=== PATIENT | female | born 1940 | race Caucasian/White ===

== ENCOUNTER 2016-03-05 21:38 | Inpatient (IN) | payer MEDICARE, BC, OTHER ==
[~2016-03-05] VITALS: Ht 162.6 cm; Wt 74.4 kg
[~2016-03-05 21:38] MED LIST: ASPI81TA83 OR; BABY81CH; BABY81CH OR; CLAR5CHW; Centrum Silver; MULTIVIT OR; PAIN325T; SYNT88TA; SYNT88TA OR; ZOCO5TAB OR; Zocor; [UNRECOGNIZED DRUG - OTHER]; calcium chews OR; lysine OR
[2016-03-05] MEDS ORDERED: ASPIRIN 81 MG CHEW TABLET As Ordered ONE (22:08)
[2016-03-05 22:28] LABS: BASO % 0.5 % (0.0-1.0); EOS # 0.1 K/mm3 (0.0-0.50); EOS % 0.8 % (0.0-3.0); LARGE UNSTAINED CELL # 0.2 K/mm3 (0.0-0.4); LARGE UNSTAINED CELL % 1.6 % (0.0-4.0); LYMPH # 1.7 K/mm3 (1.5-4.5); LYMPH % 16.4 % (24.0-44.0); MEAN CORPUSCULAR HEMOGLOBIN 30.1 pg (27.0-33.0); MEAN CORPUSCULAR HGB CONC 33.1 g/dl (32.0-36.5); MEAN CORPUSCULAR VOLUME 90.8 fl (80.0-96.0); MONO # 0.5 K/mm3 (0.0-0.8); MONO % 4.3 % (0.0-5.0); NEUTROPHILS % 76.5 % (36.0-66.0); PLATELET COUNT, AUTOMATED 273 k/mm3 (150-450); RED CELL DISTRIBUTION WIDTH 12.6 % (11.5-14.5); WHITE BLOOD COUNT 10.5 K/mm3 (4.0-10.0)
[2016-03-05 22:50] LABS: ANION GAP 9 MEQ/L (8-16); BLOOD UREA NITROGEN 20 MG/DL (7-18); CALCIUM LEVEL 9.1 MG/DL (8.8-10.2); CARBON DIOXIDE LEVEL 28 MEQ/L (21-32); CHLORIDE LEVEL 102 MEQ/L (98-107); CREATININE FOR GFR 1.04 MG/DL (0.55-1.02); GLOMERULAR FILTRATION RATE 54.7 (>39); GLUCOSE, FASTING 115 MG/DL (83-110); POTASSIUM SERUM 3.8 MEQ/L (3.5-5.1); SODIUM LEVEL 139 MEQ/L (136-145)
[2016-03-05] MEDS ORDERED: MORPHINE 2 MG/ML 1ML SYRINGE As Ordered ONE (23:10)
[2016-03-05] MEDS ORDERED: ISOVUE-370 76% 100ML VIAL (Q9967) As Ordered ONE (23:23)
--- NOTE | 2016-03-06 00:10 | REPUSA ---
CLINICAL INDICATION: Shortness of breath. Evaluate for pulmonary embolism. COMPARISON: None TECHNIQUE: CT pulmonary angiogram was performed with intravenous contrast. 3D/MIPS technique was util ized with multiplanar reconstructions in sagittal and coronal projections. FINDINGS: LINES AND DEVICES: None PULMONARY ARTERY: The pulmonary artery is normal in caliber. There is no evidence of filling defects in the main, right or left main, lobar, segmental, and visualized subsegmental pulmonary arteries. AORTA: Normal in caliber with no evidence of gross dissection or aneurysm. LOWER NECK/THYROID: Thyroid gland is unremarkable. No mass, suspicious cystic lesion, or enlarged gabi nopathy. AXILLA/HILUM/MEDIASTINUM : No enlarged adenopathy, mass, suspicious cystic lesion, or fluid collectio n. HEART: Heart is normal in size without pericardial effusion. AIRWAYS, LUNGS AND PLEURA: Bilateral centrilobular emphysematous changes, dependent changes toward th e lower lobes with mild atelectasis, and a left posterior lung base infiltrate-like opacity noted on axial series 402, image 603. No mass, suspicious nodule, or pneumothorax. Central and visualized tesha pheral airways are patent. UPPER ABDOMEN: Visualized upper abdominal organs are unremarkable. OSSEOUS STRUCTURES: No fracture or suspicious lesion SOFT TISSUES AND THORACIC WALL : No soft tissue abnormality or hernia. OTHER: No other significant abnormalities. IMPRESSION: No pulmonary embolism. Centrilobular emphysematous changes noted with a left lower lobe opacity towar d the bases which may represent infiltrate in proper clinical context.
[2016-03-06] MEDS ORDERED: LevoFLOXacin(LEVAQUIN)500 MG/100 ML BAG (J1956) As Ordered ONE (01:02)
[2016-03-06] MEDS ORDERED: ONDANSETRON 4MG/2ML VIAL (J2405) IV PRN (01:15)
[2016-03-06] MEDS ORDERED: VITMTA PO (01:39)
[2016-03-06] MEDS ORDERED: LEVO88TA3 PO (01:39)
[2016-03-06] MEDS ORDERED: VIAC8.5C PO (01:39)
[2016-03-06] MEDS ORDERED: SIMV10TA2 PO (01:39)
[2016-03-06] MEDS ORDERED: ASPI81TA7 PO (01:39)
[2016-03-06] MEDS ORDERED: ACET50TAOT PO (01:39)
[2016-03-06] MEDS ORDERED: LYSI1000 PO (01:39)
[2016-03-06] MEDS ORDERED: ACETAMINOPHEN TAB 650MG DOSE (2X325MG) As Ordered ONE ×2 (03:02→09:12)
[2016-03-06 05:00] VITALS: BP 132/68
[2016-03-06] MEDS: LEVOTHYROXINE 0.088 MG TAB (88 MCG) PO SCH (06:22)
--- NOTE | 2016-03-06 06:30 | HPE ---
DATE OF ADMISSION: 03/06/2016 PRIMARY CARE PROVIDER: Dr. Mell Mendoza. CHIEF COMPLAINT: Trouble breathing when my back hurts. HISTORY OF PRESENT ILLNESS: Ms. Rodriguez is a 75-year-old female with past medical history of hypothyroidism, hyperlipidemia who presented to the emergency department (ED) today with the complaint of trouble breathing when her back and her shoulder blades hurt. Episode started at 7:00 this morning. States that she was sleeping in bed and suddenly developed her pain to her back which then led to her having problems breathing which woke her up from her room sleep. This occurred for approximately one hour. She then took some Tylenol and her back pain gradually improved. Once her back pain resolved, her shortness of breath also resolved. This was associated with chest tightness across her chest that lasted ten minutes. Burping seemed to help with her chest pain and shortness of breath. Her symptoms are not worse with positional change or deep inspiration. Around the same time she also started feeling clammy and flashing of lights which happened intermittently for the last few years. She actually had an episode of chills last week and saw her private care physician. At that time, was told that her throat and ear were red and was conservatively treated. Also, some time in the last week she also started developing cough with clear phlegm. Her cough has not worsened. She recently, yesterday, had a dental procedure and tolerated that well. She presented to the ED tonight because her pain recurred while she was walking into her home. At that time, she was reporting shoulder blade pain which then led her to have chest pain which resolved with [id number] pain medication. No extremity edema, paroxysmal nocturnal dyspnea, pallor, orthopnea, hemoptysis, fevers, night sweats. In the ED she was given Levaquin, aspirin, morphine. PAST MEDICAL HISTORY: 1. Tubular villous adenoma, status post colon resection. 2. Extensive abdominal adhesions. 3. Hyperthyroidism which subsequently led to partial thyroidectomy. 4. Post surgical hypothyroidism. 5. Hyperlipidemia. 6. Small bowel obstruction. 7. Benign lung nodule. 8. Benign breast nodule. PAST SURGICAL HISTORY: 1. Laparotomy. 2. Right hemicolectomy with ileal colic anastomosis. 3. Lysis of adhesions. 4. Repair of enterotomy 2008. 5. Laparotomy and lysis of adhesions. 6. Release of small bowel obstruction 2004. 7. Right lumpectomy. 8. Left lung resection, reportedly had one-fourth of her lobe removed, benign findings. 9. Left knee surgery. 10. Hysterectomy with bilateral oophorectomy. 11. Appendectomy. 12. Subtotal thyroidectomy. ALLERGIES: PENICILLIN, ERYTHROMYCIN reaction passing out. HOME MEDICATIONS: - Tylenol 1000 mg every 6 hours by mouth - aspirin 81 mg by mouth nightly - levothyroxine 88 mcg daily - lysin 2000 mg daily - multivitamin one tablet daily - Lipitor 10 mg by mouth nightly - Viactiv one chewable tablet twice a day SOCIAL HISTORY: The patient is an ex-smoker but greater than 20 pack year, quit in the 80s. No alcohol, no drug use. No recent travel. She used to work as a dietary director at [employer] and also in the [employer]. Unsure if she had exposure to asbestos there. Currently lives at home with her spouse. No pets. Lifetime travel includes [place], [place], [place], [place] and [place]. FAMILY HISTORY: Father with lung cancer in his 70s and mother myocardial infarction (PA) in her 40s. REVIEW OF SYSTEMS: REVIEW OF SYSTEMS: CONSTITUTIONAL: Positive for chronic chills and decreased appetite. HEENT: Reports occasional episodes of flashing lights and headaches which had been chronic for years. Recently had tooth filling but no difficulty with speech and swallow. CARDIOVASCULAR: Denies chest pain, paroxysmal nocturnal dyspnea, pillow orthopnea, lower extremity edema. PULMONARY: Denies shortness of breath, productive cough, hemoptysis. GASTROINTESTINAL: Reports episodes alternating with diarrhea, constipation. She had two lose bowel movements this morning. No hematemesis, hematochezia or melena. GENITOURINARY: Reports increased urination at night which has been chronic for years. No dysuria, or urgency, or hematuria. MUSCULOSKELETAL: Positive for back pain and bilateral shoulder pain and leg pain. She reports that her legs tend to get spastic which requires her to place them on the ground which seems to help with symptoms. NEUROLOGICAL: No paralysis, paresthesia. ENDOCRINE: Positive for thyroid disease, negative for diabetes. LYMPHATICS: No new lumps, bumps, or swelling anywhere in neck, axilla, or groin. HEMATOLOGY: No abnormal bleeding or bruising. ONCOLOGY: No history of malignancy. INTEGUMENT: Positive ecchymosis from her recent filling of her tooth. PSYCHIATRIC: No history of depression, anxiety. PHYSICAL EXAMINATION: VITAL SIGNS: Blood pressure 149/82, heart rate 70, temperature 97.3, respiratory rate 20, pulse oximetry 95% on room air. Body maximum index (BMI) 28. GENERAL: The patient was lying in bed at approximately 30 degree angle, comfortable, in no acute distress. She is awake, alert and oriented times three. Pleasant, cooperative. at bedside, no respiratory distress. HEENT: Normocephalic atraumatic. Moist oral mucosa. Left cheek with ecchymotic changes from her recent dental procedure. No obvious lesions were appreciated. Extraocular movements intact. NECK: Supple, trachea midline. No jugular venous distention (JVD). There is a healed horizontal scar from her prior partial thyroidectomy. CHEST: Symmetric chest rise, no accessory muscle use. Breath sounds are diminished bilateral lung bases. No rhonchi, wheezing, crackles appreciated. Prolonged expiratory phase. Negative egophony. HEART: Regular rate and rhythm, S1, S2 present. Could not appreciate any murmurs , rubs, gallops. Left upper back with healed incisional scar from her prior lung surgery. ABDOMEN: Soft, nontender, nondistended. Bowel sounds present. No guarding, no rebound. There are multiple healed incisional scars appreciated. EXTREMITIES: No pedal edema, pedal pulses present bilaterally. NEUROLOGIC: Sensory intact. Strength 5/5 in all extremities. No focal deficits appreciated. MUSCULOSKELETAL: Her trapezius muscles are tender to palpation. No costovertebral angle (CVA) tenderness. No other muscle tenderness. No paraspinal muscle tenderness. LABORATORY DATA: WBC 10.5, hemoglobin 13.6, hematocrit 41.1, platelets 273. Sodium 139, potassium 3.8, chloride 102, carbon dioxide 28, BUN 20, creatinine 1.04, glucose 117, troponin first set is negative. BNP 47.7. Blood cultures pending. CTA shows no pulmonary embolus (PE). Central lobular emphysematous changes in the left lower lobe towards the bases which may represent an infiltrate. EKG with rate of 64, sinus rhythm. Chest x-ray shows no obvious infiltrate. Aorta is calcified. Mild cardiomegaly. IMPRESSION AND PLAN: Ms. Rodriguez is a 75-year-old female with history of small bowel obstruction, hyperlipidemia, hypothyroidism who presented with shortness of breath. 1. Shortness of breath. This could be due to pulmonary, cardiac, infectious (bacterial or viral), or other. The patient will be admitted for close monitoring. So far, cardiac work-up has been negative. Continue to trend troponin. A CTA was unrevealing for pulmonary embolus. Check blood culture and sputum culture. The patient was started on Levaquin. Will continue antibiotics for now. 2. Chest pain. She has vague chest pain that is related only when she has back pain and also resolves when she burps. This is less suspicious for cardiac in origin; however, continue to trend troponin. Other possibilities include musculoskeletal, viral infection or gastrointestinal reflux disease (GERD). Continue to monitor. 3. Hypothyroidism. Continue levothyroxine 88 mcg daily. 4. Hyperlipidemia. Continue home dose statin. 5. Deep venous thrombosis (DVT) prophylaxis. Sequential compression device (SCD) , thromboembolic deterrent stockings (TEDS) and Lovenox. My preceptor for this patient encounter was Dr. Flores Jolly. The preceptor was physically present in the building during the encounter and was fully available as needed. All aspects of the patient interview, examination, medical decision making process, and medical care plan development were reviewed and approved by the preceptor. The preceptor is aware and concurs with the plan as stated in the body of this note and will attest to such by her co-signature. OLE
[2016-03-06 07:22] LABS: MEAN CORPUSCULAR HEMOGLOBIN 30.5 pg (27.0-33.0); MEAN CORPUSCULAR HGB CONC 33.7 g/dl (32.0-36.5); MEAN CORPUSCULAR VOLUME 90.7 fl (80.0-96.0); RED CELL DISTRIBUTION WIDTH 12.6 % (11.5-14.5); WHITE BLOOD COUNT 8.4 K/mm3 (4.0-10.0)
[2016-03-06 07:31] LABS: ANION GAP 7 MEQ/L (8-16); BLOOD UREA NITROGEN 16 MG/DL (7-18); CALCIUM LEVEL 8.8 MG/DL (8.8-10.2); CARBON DIOXIDE LEVEL 26 MEQ/L (21-32); CHLORIDE LEVEL 105 MEQ/L (98-107); CREATININE FOR GFR 0.92 MG/DL (0.55-1.02); GLOMERULAR FILTRATION RATE > 60.0 (>39); GLUCOSE, FASTING 106 MG/DL (83-110); SODIUM LEVEL 138 MEQ/L (136-145)
[2016-03-06 08:00] VITALS: BP 128/78
[2016-03-06] MEDS ORDERED: ENOXAPARIN 40 MG/0.4 ML SYRINGE (J1650) As Ordered ONE (08:01)
[2016-03-06] MEDS ORDERED: PANTOPRAZOLE 40MG TAB (PROTONIX) As Ordered ONE (08:01)
[2016-03-06] MEDS: ENOXAPARIN 40 MG/0.4 ML SYRINGE (J1650) SC SCH (08:04)
[2016-03-06] MEDS: PANTOPRAZOLE 40MG TAB (PROTONIX) PO SCH (08:04)
--- NOTE | 2016-03-06 08:18 | REP ---
Clinical: Shortness of breath. Technique: PA and lateral. Comparison: 05/09/2014. Findings: Chronic elevation of the right hemidiaphragm and right basilar fibrotic changes are appreciated. Subtle superimposed right basilar atelectasis cannot be excluded. Remainder of lung bush are well-aerated and essentially clear. Mediastinum and cardiac silhouette are within normal limits and stable. Skeletal structures are intact. Impression: Chronic changes to the right hemithorax. Cannot exclude superimposed acute atelectasis. Signed by Reid Ma MD 03/06/2016 08:09 A
[2016-03-06] MEDS: ACETAMINOPHEN 500 MG TAB PO PRN ×3 (09:38→19:49)
--- NOTE | 2016-03-06 12:28 | EDDOCDS ---
Nurse's Notes [facility] Name: April Rodriguez Age: 75 yrs Sex: Female : 1940 Arrival Date: 03/05/2016 Time: 21:38 Bed Admit Hold Private MD: Mell Mendoza E Diagnosis: Chest pain, unspecified;Pneumonia, unspecified organism Presentation: 03/05 21:45 Presenting complaint: Patient states: trouble breathing started this morning when I [facility] woke up, I've been taking a couple of pain pills and it was better for a while but getting worse tonight, feel short of breath and getting worse with back pain when breathing. Had a filling on lower left yesterday and has sustained pain and visible bruising. Adult Sepsis Screening: The patient does not have new or worsening altered mentation. Patient's respiratory rate is less than 22. Systolic blood pressure is greater than 100. Patient has a qSOFA score of 0- Negative Sepsis Screen. Suicide/Homicide risk assessment- the patient denies having any suicidal and/or homicidal ideations and does not present with any other emotional, behavioral or mental health complaints. Status: Patient is not a vice president of consulting services or dependent. Transition of care: patient was not received from another setting of care. 21:45 Acuity: HIRAM Level 3 [facility] 21:45 Method Of Arrival: Walkin/Carried/Asstd [facility] Triage Assessment: 21:52 General: Appears in no apparent distress, comfortable, Behavior is appropriate for age, [facility] cooperative. Pain: Location: back Pain currently is 5 out of 10 on a pain scale. Respiratory: Onset: The symptoms/episode began/occurred this morning, Airway is patent Respiratory effort is even, unlabored, Respiratory pattern is regular, symmetrical. Historical: - Allergies: ampicillin sodium; PENICILLINS; - Home Meds: 1. Levothyroxine Unknown Oral 1 cap once daily (Last dose: 03/05/2016) 2. simvastatin 10 mg Oral tab 1 tab once daily (Last dose: 03/04/2016) 3. Tylenol 325 mg Oral tab 2 tabs every 4 hours (Last dose: 03/05/2016 16:00) - PMHx: flat polyps; Hypercholesterolemia; hypo thyroid; - PSHx: lung surgery; breast surgery; Colon Resection; - Social history: Smoking status: Patient states former smoker of tobacco. No barriers to communication noted. - Family history: Not pertinent. - : The pt / caregiver states he / she is not on anticoagulants. Home medication list is obtained from the patient. - Exposure Risk Screening:: None identified. Screenin:31 Screening information is obtained from the patient, family members. Fall risk: At risk cf2 due to age. Assistance ADL's: requires no assistance with activities of daily living. Abuse/DV Screen: The patient / caregiver reports he/she is: not in a situation that causes fear, pain or injury. Nutritional screening: No deficits noted. Advance Directives: Further advance directive information is declined. home support is adequate. Assessment: 22:28 General: Appears comfortable, Behavior is appropriate for age, cooperative, Denies cf2 feeling ill, fatigue, chills, Patient received alert and oriented, with complaint of shortness of breath that gets worse with laying down and a headache "where I see these bright flashes of light". MD made aware.. Pain: Location: headache. Neurological: No deficits noted. EENT: No deficits noted. Cardiovascular: No deficits noted. Capillary refill < 3 seconds Clubbing of nail beds is absent JVD is absent Edema is absent. Pulses are all present. Rhythm is sinus rhythm Chest pain is denied. Respiratory: No deficits noted. Airway is patent Respiratory effort is even, unlabored, Breath sounds are clear Reports shortness of breath while lying flat. GI: No deficits noted. : No deficits noted. Derm: Bruising that is dark purple, on lower jaw. Musculoskeletal: No deficits noted. Injury Description: No known injury. 23:56 General: pt came out to nurses station stating pt's stomach was bothering her. dsf pt would not tell this senior mortgage underwriter if she was in pain or had nausea. Pt states she felt hot. Dr. alvarado notified and went to evaluate pt . 03/06 04:57 Reassessment: Patient appears in no apparent distress at this time. Patient denies pain cf2 at this time. Patient states feeling better. Patient states symptoms have improved. Adult Sepsis Screening: The patient does not have new or worsening altered mentation. Patient's respiratory rate is less than 22. Systolic blood pressure is greater than 100. Patient has a qSOFA score of 0- Negative Sepsis Screen. Vital Signs: 03/05 21:40 BP 149 / 82 RA Sitting (auto/reg); Pulse 70; Resp 20; Temp 97.3(O); Pulse Ox 95% on rs6 R/A; Weight 74.39 kg (R); Height 5 ft. 4 in. (162.56 cm) (R); Pain 5/10; 22:13 BP 135 / 69 (auto/); cf2 22:14 Pulse 86 MON; Pulse Ox 96% ; cf2 22:43 Pulse 84 MON; Pulse Ox 97% ; cf2 22:43 BP 137 / 71 (auto/); cf2 23:13 BP 147 / 92 (auto/); cf2 23:14 Pulse 80 MON; Pulse Ox 97% ; cf2 23:43 Pulse 80 MON; Pulse Ox 97% ; cf2 23:43 BP 149 / 84 (auto/); cf2 23:51 BP 152 / 70 (auto/); dsf 23:53 Pulse 62 MON; Resp 20; Temp 96.8(O); Pulse Ox 95% on R/A; dsf 03/06 00:11 Pulse 76 MON; Pulse Ox 96% ; cf2 01:29 Pulse 74 MON; Pulse Ox 92% ; cf2 01:29 BP 132 / 78; Pulse 88; Resp 16; Temp 98.0; Pulse Ox 95% on R/A; Pain 0/10; cf2 01:37 Pulse 70 MON; Pulse Ox 91% ; cf2 01:45 Pulse 74 MON; Pulse Ox 92% ; cf2 01:50 Pulse 86 MON; Pulse Ox 94% ; cf2 01:56 Pulse 68 MON; Pulse Ox 94% ; cf2 02:31 BP 159 / 75 (auto/); cf2 03/05 21:40 Body Mass Index 28.15 (74.39 kg, 162.56 cm) rs6 Vitals: 03/05 21:40 Log In Time: March 05, 2016 at 21:33. rs6 21:41 RN notified that patient meets Red Flag criteria. rs6 ED Course: 21:39 Patient visited by Bridgette Scott PCA. rs6 21:39 Patient moved to Waiting rs6 21:40 Mell Mendoza is Private Physician. rs6 21:42 Patient visited by Bridgette Scott PCA. rs6 21:44 Patient moved to 12 21:45 Roney Alvarado MD is Attending Physician. br1 21:46 Triage Initiated cjh 22:00 Christina Ohara,GRAYSON is Primary Nurse. cf2 22:00 Patient visited by Christina Ohara RN. cf2 22:03 Patient visited by Christina Ohara RN. cf2 22:03 Patient visited by Shilpa Oneill PCA. kaur 22:03 Pt greeted and oriented to ED. Patient advised of names of staff involved in care, kaur location of call tena, wait times and NPO status. Accompanied by Significant Other, Patient has correct armband on for positive identification. Placed in gown. Bed in low position. Call light in reach. Side rails up X2. cardiac monitor technician on. Pulse ox on. NIBP on. 22:03 EKG done. (by ED staff). Reviewed by Roney Alvarado MD. kaur 22:05 Patient visited by Roney Alvarado MD. br1 22:17 Primary Nurse role handed off by Christina Ohara RN dsf 22:17 Ruby FungRN is Primary Nurse. dsf 22:17 Christina Ohara RN is Primary Nurse. cf2 22:17 Patient visited by Christina Ohara RN. cf2 22:17 Troponin Sent. cf2 22:17 Cardiac Injury Profile Sent. cf2 22:17 CBC with Diff Sent. cf2 22:17 Basic Metabolic Profile Sent. cf2 22:17 B-Type Natiuretic Peptide Sent. cf2 22:31 The patient / caregiver is instructed regarding the plan of care and ED course. cf2 Property :Personal belongings accompany Pt. Door closed. Noise minimized. Visitors limited. Lights dimmed. Moved to private room. Verbal reassurance given. Warm blanket given. Pillow given. Head of bed elevated. 22:31 Inserted saline lock: 20 gauge in right antecubital area and blood collected. The cf2 patient tolerated the procedure well. No procedures done that require assistance. 22:47 [facility] Payment Agreement was scanned into [employer] and attached to record. zo 22:50 Patient visited by Christina Ohara RN. cf2 22:56 Patient visited by Christina Ohara RN. cf2 23:[address] dsf 23:37 Patient moved to 12 jpk 23:38 Patient visited by Christina Ohara,GRAYSON. cf2 23:54 Patient visited by Roney Alvarado MD. br1 23:57 Patient visited by Ruby Fung RN. dsf 03/06 00:40 CT Chest Angio R/O PE Returned. EDMS 00:47 Patient visited by Christina Ohara,GRAYSON. cf2 00:51 Flores Jolly is Hospitalizing Provider. fg 01:01 Patient moved to Admit Hold cz 01:05 Patient visited by Christina Ohara RN. cf2 01:23 BLOOD CULTURES Sent. cf2 02:00 Patient visited by Christina Ohara RN. cf2 02:09 Patient visited by Christina Ohara RN. cf2 02:44 Patient visited by Christina Ohara RN. cf2 04:57 Patient visited by Christina Ohara RN. cf2 08:33 Chest, 2 View (pa\\E\\lat) Returned. EDMS Administered Medications: 03/05 22:11 Drug: Aspirin 324 mg [aspirin 81 mg chewable tablet (4 tabs)] Route: PO; cp1 23:23 Follow up: Response: No significant change. cf2 23:10 Drug: morphine 2 mg [morphine 2 mg/mL intravenous cartridge (1 mL)] Route: IVP; Site: cf2 left antecubital; 23:23 Follow up: Response: No significant change. cf2 03/06 01:00 Drug: levofloxacin 500 mg [levofloxacin 500 mg/100 mL in 5 % dextrose intravenous cf2 piggyback] Route: IVPB; Infused Over: 60 mins; Site: left antecubital; 02:09 Follow up: Response: No Adverse Reaction cf2 Order Results: Lab Order: B-Type Natiuretic Peptide; SPEC'M 03/05/16 22:15 Test: BRAIN NATRIURETIC PEPTIDE; Value: 47.7; Range: <100; Units: PG/ML; Status: F Lab Order: Basic Metabolic Profile; SPEC'M 03/05/16 22:14 Test: GLUCOSE, FASTING; Value: 115; Range: 83-110; Abnormal: Above high normal; Units: MG/DL; Status: F Test: BLOOD UREA NITROGEN; Value: 20; Range: 7-18; Abnormal: Above high normal; Units: MG/DL; Status: F Test: CREATININE FOR GFR; Value: 1.04; Range: 0.55-1.02; Abnormal: Above high normal; Units: MG/DL; Status: F Test: GLOMERULAR FILTRATION RATE; Value: 54.7; Range: >39; Status: F Test: SODIUM LEVEL; Value: 139; Range: 136-145; Units: MEQ/L; Status: F Test: POTASSIUM SERUM; Value: 3.8; Range: 3.5-5.1; Units: MEQ/L; Status: F Test: CHLORIDE LEVEL; Value: 102; Range: 98-107; Units: MEQ/L; Status: F Test: CARBON DIOXIDE LEVEL; Value: 28; Range: 21-32; Units: MEQ/L; Status: F Test: ANION GAP; Value: 9; Range: 8-16; Units: MEQ/L; Status: F Test: CALCIUM LEVEL; Value: 9.1; Range: 8.8-10.2; Units: MG/DL; Status: F Test Note: ; Units are mL/min/1.73 m2 Chronic Kidney Disease Staging per NKF: Stage I & II GFR >=60 Normal to Mildly Decreased Stage III GFR 30-59 Moderately Decreased Stage IV GFR 15-29 Severely Decreased Stage V GFR <15 Very Little GFR Left ESRD GFR <15 on COILED COIL INSPECTOR Lab Order: CBC with Diff; SPEC'M 03/05/16 22:15 Test: WHITE BLOOD COUNT; Value: 10.5; Range: 4.0-10.0; Abnormal: Above high normal; Units: K/mm3; Status: F Test: RED BLOOD COUNT; Value: 4.52; Range: 4.00-5.40; Units: M/mm3; Status: F Test: HEMOGLOBIN; Value: 13.6; Range: 12.0-16.0; Units: g/dl; Status: F Test: HEMATOCRIT; Value: 41.1; Range: 36.0-47.0; Units: %; Status: F Test: MEAN CORPUSCULAR VOLUME; Value: 90.8; Range: 80.0-96.0; Units: fl; Status: F Test: MEAN CORPUSCULAR HEMOGLOBIN; Value: 30.1; Range: 27.0-33.0; Units: pg; Status: F Test: MEAN CORPUSCULAR HGB CONC; Value: 33.1; Range: 32.0-36.5; Units: g/dl; Status: F Test: RED CELL DISTRIBUTION WIDTH; Value: 12.6; Range: 11.5-14.5; Units: %; Status: F Test: PLATELET COUNT, AUTOMATED; Value: 273; Range: 150-450; Units: k/mm3; Status: F Test: NEUTROPHILS %; Value: 76.5; Range: 36.0-66.0; Abnormal: Above high normal; Units: %; Status: F Test: LYMPH %; Value: 16.4; Range: 24.0-44.0; Abnormal: Below low normal; Units: %; Status: F Test: MONO %; Value: 4.3; Range: 0.0-5.0; Units: %; Status: F Test: EOS %; Value: 0.8; Range: 0.0-3.0; Units: %; Status: F Test: BASO %; Value: 0.5; Range: 0.0-1.0; Units: %; Status: F Test: LARGE UNSTAINED CELL %; Value: 1.6; Range: 0.0-4.0; Units: %; Status: F Test: NEUTROPHILS #; Value: 8.0; Range: 1.8-7.7; Abnormal: Above high normal; Units: K/mm3; Status: F Test: LYMPH #; Value: 1.7; Range: 1.5-4.5; Units: K/mm3; Status: F Test: MONO #; Value: 0.5; Range: 0.0-0.8; Units: K/mm3; Status: F Test: EOS #; Value: 0.1; Range: 0.0-0.50; Units: K/mm3; Status: F Test: BASO #; Value: 0.0; Range: 0.0-0.2; Units: K/mm3; Status: F Test: LARGE UNSTAINED CELL #; Value: 0.2; Range: 0.0-0.4; Units: K/mm3; Status: F Lab Order: Cardiac Injury Profile; SPEC'M 03/05/16 22:14 Test: CPK CREATINE PHOSPHOKINASE; Value: 75; Range: 26-192; Units: U/L; Status: F Test: CK-MB VALUE MASS; Value: 1.0; Range: 0.0-3.6; Units: NG/ML; Status: F Test: MB/CK RELATIVE INDEX; Value: 1.33; Range: < OR =4; Status: F Test Note: ; DIAGNOSIS CRITERIA MMB ng/ml Relative Index (RI) NON-AMI < or = 5 N/A SCHWARTZ ZONE > 5 < or = 4 AMI > 5 > 4 Lab Order: Troponin; [facility] 03/05/16 22:14 Test: TROPONIN I; Value: < 0.02; Range: < 0.10; Units: NG/ML; Status: F Test Note: ; Troponin I Reference Interval for [facility]: 99th Percentile= 0.00-0.045 ng/ml Risk Stratification: <= 0.10 ng/ml Decreased Risk for Adverse Clinical Events. 0.10-1.50 ng/ml Increased Risk for Adverse Clinical Events. Evaluation of additional criterion and/or repeat testing in 2-6 hours is suggested to rule out myocardial damage. >= 1.50 ng/ml Indicative of Myocardial Injury. Lab Order: CARDIAC MARKER PANEL; [facility]/06[facility] 03:08 Test: CPK CREATINE PHOSPHOKINASE; Value: 80; Range: 26-192; Units: U/L; Status: F Test: CK-MB VALUE MASS; Value: 1.0; Range: 0.0-3.6; Units: NG/ML; Status: F Test: MB/CK RELATIVE INDEX; Value: 1.25; Range: < OR =4; Status: F Test: TROPONIN I; Value: < 0.02; Range: < 0.10; Units: NG/ML; Status: F Test Note: ; DIAGNOSIS CRITERIA MMB ng/ml Relative Index (RI) NON-AMI < or = 5 N/A SCHWARTZ ZONE > 5 < or = 4 AMI > 5 > 4 Lab Order: TROPONIN; [facility] 03/06/16 10:15 Test: TROPONIN I; Value: < 0.02; Range: < 0.10; Units: NG/ML; Status: F Test Note: ; Troponin I Reference Interval for [employer] [facility] LOCI: 99th Percentile= 0.00-0.045 ng/ml Risk Stratification: <= 0.10 ng/ml Decreased Risk for Adverse Clinical Events. 0.10-1.50 ng/ml Increased Risk for Adverse Clinical Events. Evaluation of additional criterion and/or repeat testing in 2-6 hours is suggested to rule out myocardial damage. >= 1.50 ng/ml Indicative of Myocardial Injury. Lab Order: COMPLETE BLOOD COUNT; SPEC'M 03/06/16 07:04 Test: WHITE BLOOD COUNT; Value: 8.4; Range: 4.0-10.0; Units: K/mm3; Status: F Test: RED BLOOD COUNT; Value: 4.18; Range: 4.00-5.40; Units: M/mm3; Status: F Test: HEMOGLOBIN; Value: 12.8; Range: 12.0-16.0; Units: g/dl; Status: F Test: HEMATOCRIT; Value: 37.9; Range: 36.0-47.0; Units: %; Status: F Test: MEAN CORPUSCULAR VOLUME; Value: 90.7; Range: 80.0-96.0; Units: fl; Status: F Test: MEAN CORPUSCULAR HEMOGLOBIN; Value: 30.5; Range: 27.0-33.0; Units: pg; Status: F Test: MEAN CORPUSCULAR HGB CONC; Value: 33.7; Range: 32.0-36.5; Units: g/dl; Status: F Test: RED CELL DISTRIBUTION WIDTH; Value: 12.6; Range: 11.5-14.5; Units: %; Status: F Test: PLATELET COUNT, AUTOMATED; Value: 208; Range: 150-450; Units: k/mm3; Status: F Lab Order: BASIC METABOLIC PROFILE; SPEC'M 03/06/16 07:04 Test: GLUCOSE, FASTING; Value: 106; Range: 83-110; Units: MG/DL; Status: F Test: BLOOD UREA NITROGEN; Value: 16; Range: 7-18; Units: MG/DL; Status: F Test: CREATININE FOR GFR; Value: 0.92; Range: 0.55-1.02; Units: MG/DL; Status: F Test: GLOMERULAR FILTRATION RATE; Value: > 60.0; Range: >39; Status: F Test: SODIUM LEVEL; Value: 138; Range: 136-145; Units: MEQ/L; Status: F Test: POTASSIUM SERUM; Value: 4.0; Range: 3.5-5.1; Units: MEQ/L; Status: F Test: CHLORIDE LEVEL; Value: 105; Range: 98-107; Units: MEQ/L; Status: F Test: CARBON DIOXIDE LEVEL; Value: 26; Range: 21-32; Units: MEQ/L; Status: F Test: ANION GAP; Value: 7; Range: 8-16; Abnormal: Below low normal; Units: MEQ/L; Status: F Test: CALCIUM LEVEL; Value: 8.8; Range: 8.8-10.2; Units: MG/DL; Status: F Test Note: ; Units are mL/min/1.73 m2 Chronic Kidney Disease Staging per NKF: Stage I & II GFR >=60 Normal to Mildly Decreased Stage III GFR 30-59 Moderately Decreased Stage IV GFR 15-29 Severely Decreased Stage V GFR <15 Very Little GFR Left ESRD GFR <15 on COILED COIL INSPECTOR Radiology Order: Chest, 2 View (pa\\E\\lat) Test: Chest, 2 View (pa\\E\\lat) REASON FOR EXAMINATION: Shortness of Breath; Clinical: Shortness of breath.; ; Technique: PA and lateral.; ; Comparison: 05/09/2014.; ; Findings:; Chronic elevation of the right hemidiaphragm and right basilar fibrotic changes; are appreciated. Subtle superimposed right basilar atelectasis cannot be; excluded. Remainder of lung bush are well-aerated and essentially clear.; Mediastinum and cardiac silhouette are within normal limits and stable. Skeletal; structures are intact.; ; Impression:; Chronic changes to the right hemithorax.; Cannot exclude superimposed acute atelectasis.; ; ; Signed by; Reid Ma MD 03/06/2016 08:09 A; Radiology Order: CT Chest Angio R/O PE Test: CT Chest Angio R/O PE REASON FOR EXAMINATION: Shortness of Breath; ; CLINICAL INDICATION: Shortness of breath. Evaluate for pulmonary embolism.; COMPARISON: None; TECHNIQUE: CT pulmonary angiogram was performed with intravenous contrast. 3D/MIPS technique was util; ized with multiplanar reconstructions in sagittal and coronal projections.; FINDINGS:; LINES AND DEVICES: None; PULMONARY ARTERY: The pulmonary artery is normal in caliber. There is no evidence of filling defects; in the main, right or left main, lobar, segmental, and visualized subsegmental pulmonary arteries.; AORTA: Normal in caliber with no evidence of gross dissection or aneurysm.; LOWER NECK/THYROID: Thyroid gland is unremarkable. No mass, suspicious cystic lesion, or enlarged gabi; nopathy.; AXILLA/HILUM/MEDIASTINUM : No enlarged adenopathy, mass, suspicious cystic lesion, or fluid collectio; n.; HEART: Heart is normal in size without pericardial effusion.; AIRWAYS, LUNGS AND PLEURA: Bilateral centrilobular emphysematous changes, dependent changes toward th; e lower lobes with mild atelectasis, and a left posterior lung base infiltrate-like opacity noted on; axial series 402, image 603. No mass, suspicious nodule, or pneumothorax. Central and visualized tesha; pheral airways are patent.; UPPER ABDOMEN: Visualized upper abdominal organs are unremarkable.; OSSEOUS STRUCTURES: No fracture or suspicious lesion; SOFT TISSUES AND THORACIC WALL : No soft tissue abnormality or hernia.; OTHER: No other significant abnormalities.; IMPRESSION:; No pulmonary embolism. Centrilobular emphysematous changes noted with a left lower lobe opacity towar; d the bases which may represent infiltrate in proper clinical context.; ; Outcome: 03/05 22:14 CT Study completed. cf2 03/06 00:52 Decision to Hospitalize by Provider. fg 01:29 Discharge Assessment: Patient awake, alert and oriented x 3. No cognitive and/or cf2 functional deficits noted. Patient verbalized understanding of disposition instructions. Patient awake and alert. Oriented to person, place and time. Patient verbalized understanding of disposition instructions. Patient has no functional deficits. patient administered narcotics - yes. Patient was admitted to the hospital or transferred to another facility. The following High Risk Discharge criteria are identified: None. Admitted ER admission nurse. Condition: stable. 12:27 Patient left the ED. nichole Signatures: Dispatcher [employer] EDMS Juanito Ch RN RN dwg Zecher, Calvin, RN RN cz King, James jpk Olin, Zoeann zo Roggie, Brian, MD MD br1 Gale Salas LPN LPN cp1 Shilpa Oneill, CRIMPER OPERATOR CRIMPER OPERATOR kaur Kenton,Ruby,RN RN Crissy Han,RN RN cj Tyler, Bridgette, CRIMPER OPERATOR CRIMPER OPERATOR rs6 Ariana Walker MD MD Christina Ohara,RN RN cf2 MTDD
--- NOTE | 2016-03-06 12:28 | EDDOCDS ---
Physician Documentation [facility] Name: April Rodriguez Age: 75 yrs Sex: Female : 1940 Arrival Date: 03/05/2016 Time: 21:38 Bed Admit Hold Private MD: Mell Mendoza E Disposition: 03/06/16 00:52 Hospitalization ordered by Flores Jolly for Inpatient Admission. Preliminary diagnosis are Chest pain, unspecified, Pneumonia, unspecified organism. - Bed requested for 4 [place]. - Status is Inpatient Admission. dwg - Condition is Stable. - Problem is new. - Symptoms have improved. Historical: - Allergies: ampicillin sodium; PENICILLINS; - Home Meds: 1. Levothyroxine Unknown Oral 1 cap once daily (Last dose: 03/05/2016) 2. simvastatin 10 mg Oral tab 1 tab once daily (Last dose: 03/04/2016) 3. Tylenol 325 mg Oral tab 2 tabs every 4 hours (Last dose: 03/05/2016 16:00) - PMHx: flat polyps; Hypercholesterolemia; hypo thyroid; - PSHx: lung surgery; breast surgery; Colon Resection; - Social history: Smoking status: Patient states former smoker of tobacco. No barriers to communication noted. - Family history: Not pertinent. - : The pt / caregiver states he / she is not on anticoagulants. Home medication list is obtained from the patient. - Exposure Risk Screening:: None identified. Vital Signs: 03/05 21:40 BP 149 / 82 RA Sitting (auto/reg); Pulse 70; Resp 20; Temp 97.3(O); Pulse Ox 95% on rs6 R/A; Weight 74.39 kg / 164 lbs (R); Height 5 ft. 4 in. (162.56 cm) (R); Pain 5/10; 22:13 BP 135 / 69 (auto/); cf2 22:14 Pulse 86 MON; Pulse Ox 96% ; cf2 22:43 Pulse 84 MON; Pulse Ox 97% ; cf2 22:43 BP 137 / 71 (auto/); cf2 23:13 BP 147 / 92 (auto/); cf2 23:14 Pulse 80 MON; Pulse Ox 97% ; cf2 23:43 Pulse 80 MON; Pulse Ox 97% ; cf2 23:43 BP 149 / 84 (auto/); cf2 23:51 BP 152 / 70 (auto/); dsf 23:53 Pulse 62 MON; Resp 20; Temp 96.8(O); Pulse Ox 95% on R/A; dsf 03/06 00:11 Pulse 76 MON; Pulse Ox 96% ; cf2 01:29 Pulse 74 MON; Pulse Ox 92% ; cf2 01:29 BP 132 / 78; Pulse 88; Resp 16; Temp 98.0; Pulse Ox 95% on R/A; Pain 0/10; cf2 01:37 Pulse 70 MON; Pulse Ox 91% ; cf2 01:45 Pulse 74 MON; Pulse Ox 92% ; cf2 01:50 Pulse 86 MON; Pulse Ox 94% ; cf2 01:56 Pulse 68 MON; Pulse Ox 94% ; cf2 02:31 BP 159 / 75 (auto/); cf2 03/05 21:40 Body Mass Index 28.15 (74.39 kg, 162.56 cm) rs6 MDM: 03/05 21:51 Taco Maker/Pulse Ox/q 30 min VS ordered. br1 21:51 IV Saline Lock ordered. br1 21:51 Rhythm Strip to chart ordered. br1 21:51 Undress patient appropriately for examination ordered. br1 21:52 B-Type Natiuretic Peptide Ordered. EDMS 21:52 Basic Metabolic Profile Ordered. EDMS 21:52 CBC with Diff Ordered. EDMS 21:52 Cardiac Injury Profile Ordered. EDMS 21:52 Troponin Ordered. EDMS 21:53 Chest, 2 View (pa\E\lat) Ordered. EDMS 21:53 ECG WITH READING ER PHYS+CARDIAG ordered. EDMS 22:05 Aspirin 324 mg PO once ordered. br1 22:33 CBC with Diff Reviewed. br1 22:39 Financial registration complete. zo 22:47 [facility] Payment Agreement was scanned into [employer] and attached to record. zo 22:49 B-Type Natiuretic Peptide Reviewed. br1 22:58 Basic Metabolic Profile Reviewed. br1 22:58 Cardiac Injury Profile Reviewed. br1 22:58 Troponin Reviewed. br1 23:00 CT Chest Angio R/O PE Ordered. EDMS 23:09 morphine 2 mg IVP once; prn pain ordered. br1 23:19 Repeat EKG (put time details section) ordered. br1 23:19 Redraw CIP &Troponin (put time in details section) ordered. br1 23:29 Redraw CIP &Troponin (put time in details section) complete. ml3 23:29 Repeat EKG (put time details section) complete. ml3 23:30 CARDIAC MARKER PANEL Ordered. EDMS 23:48 Recheck Vital Signs, perform reassessment and enter into Med[employer] ordered. br1 23:57 -Blood Culture (Adults Only), peripheral from different site, or from device/port/PICC br1 etc. if present ordered. 23:57 -Blood Culture Ordered. EDMS 23:58 -Blood Culture (Adults Only), peripheral from different site, or from device/port/PICC ml3 etc. if present complete. 03/06 00:00 BLOOD CULTURES Ordered. EDMS 00:50 levofloxacin 500 mg IVPB once over 60 mins ordered. fg 00:50 BED REQUEST+ADM ordered. EDMS 00:53 Repeat EKG (put time details section) ordered. fg 00:53 Redraw CIP &Troponin (put time in details section) ordered. fg 00:58 Repeat EKG (put time details section) complete. ml3 00:58 Redraw CIP &Troponin (put time in details section) complete. ml3 01:08 Admission / Observation Status ordered. EDMS 01:09 REGULAR DIET ordered. EDMS 02:29 SPUTUM CULTURE AND GRAM STAIN Ordered. EDMS 05:37 TROPONIN Ordered. EDMS 05:37 COMPLETE BLOOD COUNT Ordered. EDMS 05:38 BASIC METABOLIC PROFILE Ordered. EDMS 06:32 URINALYSIS Ordered. EDMS 06:32 URINE CULTURE Ordered. EDMS Administered Medications: 03/05 22:11 Drug: Aspirin 324 mg [aspirin 81 mg chewable tablet (4 tabs)] Route: PO; cp1 23:23 Follow up: Response: No significant change. cf2 23:10 Drug: morphine 2 mg [morphine 2 mg/mL intravenous cartridge (1 mL)] Route: IVP; Site: cf2 left antecubital; 23:23 Follow up: Response: No significant change. cf2 03/06 01:00 Drug: levofloxacin 500 mg [levofloxacin 500 mg/100 mL in 5 % dextrose intravenous cf2 piggyback] Route: IVPB; Infused Over: 60 mins; Site: left antecubital; 02:09 Follow up: Response: No Adverse Reaction cf2 Signatures: Dispatcher [employer] EDMS Juanito Ch, RN RN dwg Laura, MeaganReganSuzy, Executive Meeting Manager Unit ml3 Mily Ospina Brian, MD MD br1 Crissy BatesRN RN [facility] Stacey Claros RN RN sls2 Ariana Walker MD MD Christina Ohara RN RN cf2 Gale Salas LPN cp1 The chart was reviewed and I authenticate all verbal orders and agree with the evaluation and treatment provided.Corrections: (The following items were deleted from the chart) 01:02 00:59 CARDIAC MARKER PANEL ordered. EDMS EDMS 01:10 01:07 BLOOD CULTURES ordered. EDMS EDMS 05:39 02:09 TROPONIN ordered. EDMS EDMS 07:49 00:59 ECG WITH READING ER PHYS ordered. EDMS EDMS 11:40 03/05 23:29 ECG WITH READING ER PHYS ordered. EDMS EDMS Attachments: 22:47 [facility] Payment Agreement zo MTDD
[2016-03-06 12:35] VITALS: BP 135/82
[2016-03-06] MEDS: IBUPROFEN 400 MG TAB PO PRN (16:16)
[2016-03-06] MEDS: ASPIRIN 81 MG ENTERIC TAB PO SCH (20:58)
[2016-03-06] MEDS: SIMVASTATIN 10 MG TAB PO SCH (20:59)
[2016-03-06 22:00] VITALS: BP 142/76
[2016-03-07] MEDS: LevoFLOXacin 500 MG in APPROPRIATE DILUENT 1 EA IV SCH (00:03)
[2016-03-07] MEDS: IBUPROFEN 400 MG TAB PO PRN ×2 (00:03→09:46)
[2016-03-07] MEDS: ACETAMINOPHEN 500 MG TAB PO PRN ×3 (05:10→14:20)
[2016-03-07] MEDS: LEVOTHYROXINE 0.088 MG TAB (88 MCG) PO SCH (05:42)
[2016-03-07 06:00] VITALS: BP 114/65
--- NOTE | 2016-03-07 07:18 | ECGEPIP ---
Stationary ECG Study [facility] - ED Test Date: 2016-03-05 Pat Name: NARGIS HANSON Department: Room: [place] [address] Gender: F Customer Care Representative: YangB: 1940 Requested By: YRIS Singh Order Number: [id number] Reading MD: Humera Douglas Measurements Intervals [place] Rate: 64 P: 56 PA: 187 QRS: 1 QRSD: 82 T: 33 QT: 381 QTc: 396 Interpretive Statements SINUS RHYTHM NONSPECIFIC T-WAVE ABNORMALITY NO PRIOR FOR COMPARISON Electronically Signed On 03-07-2016 7:18:22 EST by Humera Douglas
[2016-03-07 07:34] LABS: BASO % 0.1 % (0.0-1.0); EOS # 0.1 K/mm3 (0.0-0.50); EOS % 0.7 % (0.0-3.0); LARGE UNSTAINED CELL # 0.2 K/mm3 (0.0-0.4); LARGE UNSTAINED CELL % 2.1 % (0.0-4.0); LYMPH # 1.1 K/mm3 (1.5-4.5); LYMPH % 10.9 % (24.0-44.0); MEAN CORPUSCULAR HEMOGLOBIN 30.9 pg (27.0-33.0); MEAN CORPUSCULAR HGB CONC 33.8 g/dl (32.0-36.5); MEAN CORPUSCULAR VOLUME 91.6 fl (80.0-96.0); MONO # 0.7 K/mm3 (0.0-0.8); MONO % 6.8 % (0.0-5.0); NEUTROPHILS # 7.8 K/mm3 (1.8-7.7); NEUTROPHILS % 79.4 % (36.0-66.0); PLATELET COUNT, AUTOMATED 194 k/mm3 (150-450); RED CELL DISTRIBUTION WIDTH 12.6 % (11.5-14.5); WHITE BLOOD COUNT 9.8 K/mm3 (4.0-10.0)
[2016-03-07 07:43] LABS: ANION GAP 4 MEQ/L (8-16); BLOOD UREA NITROGEN 14 MG/DL (7-18); CALCIUM LEVEL 8.7 MG/DL (8.8-10.2); CARBON DIOXIDE LEVEL 29 MEQ/L (21-32); CHLORIDE LEVEL 108 MEQ/L (98-107); CREATININE FOR GFR 0.86 MG/DL (0.55-1.02); GLOMERULAR FILTRATION RATE > 60.0 (>39); GLUCOSE, FASTING 112 MG/DL (83-110); POTASSIUM SERUM 4.2 MEQ/L (3.5-5.1); SODIUM LEVEL 141 MEQ/L (136-145)
--- NOTE | 2016-03-07 09:16 | IPNPDOC ---
Assessment/Plan Date Seen The patient was seen on 03/07/16. Problems Problems: (1) Pneumonia Status: Acute Response to Treatment: Improving Discussed With: Patient Problem Specific Plan: Monitor Clinically Problem Text: Still requiring supplemental oxygen, will attempt to wean. IV antibiotics. Sputum cultures/gram stain pending. incentive spirometry/acapella/mucolytics. (2) Hyperthyroidism Status: Chronic Discussed With: Patient Problem Text: s/p partial thyroidectomy (3) Hypothyroidism Status: Chronic Discussed With: Patient Problem Text: secondary to partial thyroidectomy (4) Colon cancer Status: Chronic Discussed With: Patient Problem Text: tubular villous adenoma s/p resection Plan / VTE VTE Prophylaxis Ordered?: Yes (lovenox) Plan Diet: Continue Current Activity: Continue Current Medications: Start Antibiotics Respiratory: Wean Oxygen Diagnostics: Repeat Labs in AM, Obtain Cultures Anticipated Discharge: Home Subjective Review of Systems CC/HPI The patient is a 75-year-old female admitted with a reason for visit of Pneumonia. General: Denies: Chills, Fatigue, Malaise, Night Sweats, Normal Appetite, Other Symptoms, ROS Unobtainable Constitutional: Denies: Chills, Fatigue, Fever, Lethargy, Malaise, Night Sweats , Other, Weakness, Weight Loss Eyes: Denies: Conjunctivae inflammation, Eyelid inflammation, Other, Pain, Redness, Vision change ENT: Denies: Dysphagia, Ear Pain, Epistaxis, Head Aches, Other Symptoms, Post Nasal Drip, Sinus Congestion, Sore Throat Skin: Denies: Breakdown, Bruising, Dry, Itching, Jaundice, Lesions, Nail Changes, Other, Rash Pulmonary: Reports: Cough, Dyspnea, Denies: Other Symptoms, Pleuritic Chest Pain Cardiovascular: Denies: Chest Pain, Edema, Lt Headedness, Orthopnea, Other Symptoms, Palpitations, Paroxysmal Noc. Dyspnea Gastrointestinal: Denies: Abdominal Pain, Constipation, Diarrhea, Hematochezia , Melena, Nausea, Other Symptoms, Vomiting Objective Physical Examination General Exam: Positive: Alert, Cooperative, No Acute Distress Eye Exam: Positive: Conjunctiva & lids normal, EOMI, PERRLA ENT Exam: Positive: Atraumatic Neck Exam: Positive: Supple Chest Exam: Positive: Clear to auscultation, Diminished (right lower base diminised breath sounds), Negative: Normal air movement Heart Exam: Positive: Rate Normal, Regular Rhythm Abdomen Exam: Positive: Normal bowel sounds, Soft, Negative: Tenderness Psych Exam: Positive: Oriented x 3 Vital Signs/I&O Vital Signs Date Time Temp Pulse Resp B/P Pulse Ox O2 Delivery O2 Flow Rate FiO2 03/07/16 06:00 98.5 81 20 114/65 97 Nasal Cannula 3.0 I&O- Last 24 Hours up to 6 AM 03/07/16 06:00 Intake Total 1170 ml Output Total 1100 ml Balance 70 ml Laboratory Data Labs 24H Laboratory Tests 2 03/06/16 10:15: Troponin I < 0.02 03/07/16 05:19: Urine Amorphous Sediment , Urine Appearance CLEAR, Urine Color YELLOW, Urine pH 5.0, Urine Specific [place] 1.012, Urine Protein NEGATIVE, Urine Glucose (UA) NEGATIVE, Urine Ketones NEGATIVE, Urine Urobilinogen 0.2, Urine Bilirubin NEGATIVE, Urine Leukocyte Esterase 3+H, Urine Bacteria (Auto) 1+H, Urine Blood NEGATIVE, Urine Calcium Carbonate Cryst(Auto) , Urine Calcium Oxalate Cryst ( Auto) , Urine Calcium Phosphate Tiffanie (Auto) , Urine Cellular Casts , Urine Cystine Crystals , Urine Granular Casts (Auto) , Urine Hyaline Casts (Auto) 0, Urine Leucine Crystals , Urine Mucus (Auto) SMALL, Urine Nitrite NEGATIVE, Urine Oval Fat Bodies (Auto) , Urine RBC (Auto) 3, Urine Renal Epithelial Cells , Urine Sperm (Auto) , Urine Squamous Epithelial Cells 0, Urine Transitional Epithelial Cells , Urine Trichomonas (Auto) , Urine Triple Phosphate Cryst (Auto ) , Urine Tyrosine Crystals , Urine Uric Acid Crystals (Auto) , Urine WBC (Auto ) 38H, Urine Waxy Casts (Auto) , Urine Yeast-Like Cells (Auto) 03/07/16 07:13: Anion Gap 4L, White Blood Count 9.8, Red Blood Count 3.88L, Hemoglobin 12.0, Hematocrit 35.6L, Mean Corpuscular Volume 91.6, Mean Corpuscular Hemoglobin 30.9 , Mean Corpuscular Hemoglobin Concent 33.8, Red Cell Distribution Width 12.6, Platelet Count 194, Neutrophils (%) (Auto) 79.4H, Lymphocytes (%) (Auto) 10.9L, Monocytes (%) (Auto) 6.8H, Eosinophils (%) (Auto) 0.7, Basophils (%) (Auto) 0.1 , Neutrophils # (Auto) 7.8H, Lymphocytes # (Auto) 1.1L, Monocytes # (Auto) 0.7, Eosinophils # (Auto) 0.1, Basophils # (Auto) 0.0, Blood Urea Nitrogen 14, Creatinine 0.86, Sodium Level 141, Potassium Level 4.2, Chloride Level 108H, Carbon Dioxide Level 29, Calcium Level 8.7L, Glomerular Filtration Rate > 60.0, Large Unclassified Cells # 0.2, Large Unclassified Cells % 2.1 CBC/BMP Laboratory Tests 03/07/16 07:13 Calcium Level 8.7 L, Red Blood Count 3.88 L, Mean Corpuscular Volume 91.6, Mean Corpuscular Hemoglobin 30.9, Mean Corpuscular Hemoglobin Concent 33.8, Red Cell Distribution Width 12.6, Neutrophils (%) (Auto) 79.4 H, Lymphocytes (%) (Auto) 10.9 L, Monocytes (%) (Auto) 6.8 H, Eosinophils (%) (Auto) 0.7, Basophils (%) ( Auto) 0.1, Neutrophils # (Auto) 7.8 H, Lymphocytes # (Auto) 1.1 L, Monocytes # ( Auto) 0.7, Eosinophils # (Auto) 0.1, Basophils # (Auto) 0.0 Microbiology Microbiology 03/06/16 Blood Culture - Preliminary, Resulted No growth after 24 hours . All specim... 03/06/16 Blood Culture - Preliminary, Resulted No growth after 24 hours . All specim... 03/07/16 Urine Culture, Received Pending LSIBETH REYNOLDS MD Mar 07, 2016 09:15
[2016-03-07] MEDS: PANTOPRAZOLE 40MG TAB (PROTONIX) PO SCH (09:45)
[2016-03-07] MEDS: ENOXAPARIN 40 MG/0.4 ML SYRINGE (J1650) SC SCH (09:46)
[2016-03-07 14:00] VITALS: BP 111/74
[2016-03-07] MEDS ORDERED: SODIUM CHLORIDE 0.9% 1000 ML IV ONE (20:45)
[2016-03-07] MEDS: SIMVASTATIN 10 MG TAB PO SCH (20:49)
[2016-03-07] MEDS: ASPIRIN 81 MG ENTERIC TAB PO SCH (20:49)
[2016-03-07 22:00] VITALS: BP 90/58
[2016-03-07 23:00] VITALS: BP 115/67
[2016-03-08] MEDS: LevoFLOXacin 500 MG in APPROPRIATE DILUENT 1 EA IV SCH (00:47)
[2016-03-08 01:58] VITALS: BP 128/72
[2016-03-08] MEDS: ACETAMINOPHEN 500 MG TAB PO PRN (02:05)
[2016-03-08 05:26] LABS: BASO % 0.3 % (0.0-1.0); EOS # 0.1 K/mm3 (0.0-0.50); EOS % 0.9 % (0.0-3.0); LARGE UNSTAINED CELL # 0.2 K/mm3 (0.0-0.4); LARGE UNSTAINED CELL % 2.5 % (0.0-4.0); LYMPH # 1.2 K/mm3 (1.5-4.5); LYMPH % 13.1 % (24.0-44.0); MEAN CORPUSCULAR HEMOGLOBIN 30.3 pg (27.0-33.0); MEAN CORPUSCULAR HGB CONC 33.1 g/dl (32.0-36.5); MEAN CORPUSCULAR VOLUME 91.5 fl (80.0-96.0); MONO # 0.4 K/mm3 (0.0-0.8); MONO % 4.9 % (0.0-5.0); NEUTROPHILS # 7.1 K/mm3 (1.8-7.7); NEUTROPHILS % 78.3 % (36.0-66.0); PLATELET COUNT, AUTOMATED 204 k/mm3 (150-450); RED CELL DISTRIBUTION WIDTH 12.7 % (11.5-14.5)
[2016-03-08 05:28] LABS: ANION GAP 7 MEQ/L (8-16); BLOOD UREA NITROGEN 17 MG/DL (7-18); CALCIUM LEVEL 8.2 MG/DL (8.8-10.2); CARBON DIOXIDE LEVEL 26 MEQ/L (21-32); CHLORIDE LEVEL 111 MEQ/L (98-107); CREATININE FOR GFR 0.89 MG/DL (0.55-1.02); GLOMERULAR FILTRATION RATE > 60.0 (>39); GLUCOSE, FASTING 100 MG/DL (83-110); SODIUM LEVEL 144 MEQ/L (136-145)
[2016-03-08] MEDS: LEVOTHYROXINE 0.088 MG TAB (88 MCG) PO SCH (05:30)
[2016-03-08 06:00] VITALS: BP 113/57
--- NOTE | 2016-03-08 09:16 | IPN ---
DATE: 03/08/2016 logolineup NOTE Paged overhead, responded emergently to [employer] to patient April Rodriguez at 7:55 a.m. As I entered the room, I found an elderly, frail, obese, female lying flat in bed. She appeared rodgers with agonal, gurgling breaths. At that time, she was placed on a monitor. She did have a pulse; however, she quickly decompensated into a PEA rhythm. Respiratory began bagging the patient. Oral airway was placed. Cardiopulmonary resuscitation was initiated. The patient did receive eight rounds of epinephrine, as well as four rounds of bicarbonate. During resuscitative efforts, initially we were able to restore Doppler pulse; however, it was not able to hold it. The compressions were quickly resumed. She did have some episodes of bradyarrhythmia and as such, atropine was given times one without any significant effect. She remained in PEA. Dr. Restrepo of the emergency room staff was able to present to the bedside and assist with endotracheal intubation. While resuscitative efforts continued, the patient did also receive one round of calcium. Family was notified of the change in the patient's clinical status. Dr. Mayer did present bedside. Given the acute change in her status, there was concern for possible development of pulmonary embolism, although she did not have one at the time of arrival, based on review of the chart. Attempt at TPA was given. Several cycles of compressions of this following this were continued with frequent pulse checks. Unfortunately, there was no return to circulation or Doppler pulses, and resuscitative efforts ceased at 8:[address] Centeno, Dr. Rothman, Dr. Talbert, Dr. Travis, and Dr. Mayer at bedside prior to resuscitative efforts. There was suspicion for primary respiratory arrest given the patient's hypoxia appreciated.
[2016-03-08] MEDS ORDERED: SODIUM BICARBONATE 8.4% INJ 50 ML SYRINGE ONE (13:23)
[2016-03-08] MEDS ORDERED: EPINEPHrine 1MG/10ML SYRINGE 1.5IN ONE (13:23)
[2016-03-08] MEDS ORDERED: TENECTEPLASE 50 MG KIT (TNKase)(J3101) ONE (13:23)
[2016-03-08] MEDS ORDERED: CALCIUM CHLORIDE 10% 1 GM/10 ML SYR ONE (13:23)
[2016-03-08] MEDS ORDERED: ATROPINE SULF 1MG/10ML SYRINGE (J0461) ONE (13:23)
--- NOTE | 2016-03-08 13:28 | EDDOCDS ---
Physician Documentation [facility] Name: April Rodriguez Age: 75 yrs Sex: Female : 1940 Arrival Date: 03/05/2016 Time: 21:38 Bed Admit Hold Private MD: Mell Mendoza E Disposition: 03/06/16 00:52 Hospitalization ordered by Flores Jolly for Inpatient Admission. Preliminary diagnosis are Chest pain, unspecified, Pneumonia, unspecified organism. - Bed requested for 4 [place]. - Status is Inpatient Admission. dwg - Condition is Stable. - Problem is new. - Symptoms have improved. Historical: - Allergies: ampicillin sodium; PENICILLINS; - Home Meds: 1. Levothyroxine Unknown Oral 1 cap once daily (Last dose: 03/05/2016) 2. simvastatin 10 mg Oral tab 1 tab once daily (Last dose: 03/04/2016) 3. Tylenol 325 mg Oral tab 2 tabs every 4 hours (Last dose: 03/05/2016 16:00) - PMHx: flat polyps; Hypercholesterolemia; hypo thyroid; - PSHx: lung surgery; breast surgery; Colon Resection; - Social history: Smoking status: Patient states former smoker of tobacco. No barriers to communication noted. - Family history: Not pertinent. - : The pt / caregiver states he / she is not on anticoagulants. Home medication list is obtained from the patient. - Exposure Risk Screening:: None identified. Vital Signs: 03/05 21:40 BP 149 / 82 RA Sitting (auto/reg); Pulse 70; Resp 20; Temp 97.3(O); Pulse Ox 95% on rs6 R/A; Weight 74.39 kg / 164 lbs (R); Height 5 ft. 4 in. (162.56 cm) (R); Pain 5/10; 22:13 BP 135 / 69 (auto/); cf2 22:14 Pulse 86 MON; Pulse Ox 96% ; cf2 22:43 Pulse 84 MON; Pulse Ox 97% ; cf2 22:43 BP 137 / 71 (auto/); cf2 23:13 BP 147 / 92 (auto/); cf2 23:14 Pulse 80 MON; Pulse Ox 97% ; cf2 23:43 Pulse 80 MON; Pulse Ox 97% ; cf2 23:43 BP 149 / 84 (auto/); cf2 23:51 BP 152 / 70 (auto/); dsf 23:53 Pulse 62 MON; Resp 20; Temp 96.8(O); Pulse Ox 95% on R/A; dsf 03/06 00:11 Pulse 76 MON; Pulse Ox 96% ; cf2 01:29 Pulse 74 MON; Pulse Ox 92% ; cf2 01:29 BP 132 / 78; Pulse 88; Resp 16; Temp 98.0; Pulse Ox 95% on R/A; Pain 0/10; cf2 01:37 Pulse 70 MON; Pulse Ox 91% ; cf2 01:45 Pulse 74 MON; Pulse Ox 92% ; cf2 01:50 Pulse 86 MON; Pulse Ox 94% ; cf2 01:56 Pulse 68 MON; Pulse Ox 94% ; cf2 02:31 BP 159 / 75 (auto/); cf2 03/05 21:40 Body Mass Index 28.15 (74.39 kg, 162.56 cm) rs6 MDM: 03/05 21:51 Recruitment Specialist/Pulse Ox/q 30 min VS ordered. br1 21:51 IV Saline Lock ordered. br1 21:51 Rhythm Strip to chart ordered. br1 21:51 Undress patient appropriately for examination ordered. br1 21:52 B-Type Natiuretic Peptide Ordered. EDMS 21:52 Basic Metabolic Profile Ordered. EDMS 21:52 CBC with Diff Ordered. EDMS 21:52 Cardiac Injury Profile Ordered. EDMS 21:52 Troponin Ordered. EDMS 21:53 Chest, 2 View (pa\E\lat) Ordered. EDMS 21:53 ECG WITH READING ER PHYS+CARDIAG ordered. EDMS 22:05 Aspirin 324 mg PO once ordered. br1 22:33 CBC with Diff Reviewed. br1 22:39 Financial registration complete. zo 22:47 [facility] [place] Payment Agreement was scanned into [employer] and attached to record. zo 22:49 B-Type Natiuretic Peptide Reviewed. br1 22:58 Basic Metabolic Profile Reviewed. br1 22:58 Cardiac Injury Profile Reviewed. br1 22:58 Troponin Reviewed. br1 23:00 CT Chest Angio R/O PE Ordered. EDMS 23:09 morphine 2 mg IVP once; prn pain ordered. br1 23:19 Repeat EKG (put time details section) ordered. br1 23:19 Redraw CIP &Troponin (put time in details section) ordered. br1 23:29 Redraw CIP &Troponin (put time in details section) complete. ml3 23:29 Repeat EKG (put time details section) complete. ml3 23:30 CARDIAC MARKER PANEL Ordered. EDMS 23:48 Recheck Vital Signs, perform reassessment and enter into [employer] ordered. br1 23:57 -Blood Culture (Adults Only), peripheral from different site, or from device/port/PICC br1 etc. if present ordered. 23:57 -Blood Culture Ordered. EDMS 23:58 -Blood Culture (Adults Only), peripheral from different site, or from device/port/PICC ml3 etc. if present complete. 03/06 00:00 BLOOD CULTURES Ordered. EDMS 00:50 levofloxacin 500 mg IVPB once over 60 mins ordered. fg 00:50 BED REQUEST+ADM ordered. EDMS 00:53 Repeat EKG (put time details section) ordered. fg 00:53 Redraw CIP &Troponin (put time in details section) ordered. fg 00:58 Repeat EKG (put time details section) complete. ml3 00:58 Redraw CIP &Troponin (put time in details section) complete. ml3 01:08 Admission / Observation Status ordered. EDMS 01:09 REGULAR DIET ordered. EDMS 02:29 SPUTUM CULTURE AND GRAM STAIN Ordered. EDMS 05:37 TROPONIN Ordered. EDMS 05:37 COMPLETE BLOOD COUNT Ordered. EDMS 05:38 BASIC METABOLIC PROFILE Ordered. EDMS 06:32 URINALYSIS Ordered. EDMS 06:32 URINE CULTURE Ordered. EDMS 14:00 ECG/EKG was scanned into [employer] and attached to record. gb 14:01 T-Sheet-- Draft Copy was scanned into [employer] and attached to record. gb Administered Medications: 03/05 22:11 Drug: Aspirin 324 mg [aspirin 81 mg chewable tablet (4 tabs)] Route: PO; cp1 23:23 Follow up: Response: No significant change. cf2 23:10 Drug: morphine 2 mg [morphine 2 mg/mL intravenous cartridge (1 mL)] Route: IVP; Site: cf2 left antecubital; 23:23 Follow up: Response: No significant change. cf2 03/06 01:00 Drug: levofloxacin 500 mg [levofloxacin 500 mg/100 mL in 5 % dextrose intravenous cf2 piggyback] Route: IVPB; Infused Over: 60 mins; Site: left antecubital; 02:09 Follow up: Response: No Adverse Reaction cf2 Signatures: Dispatcher [employer] Juanito Winter, RN RN dwg Padmaja Plascencia, Reg Reg gb Laura, Anaya, Group Exercise Class Instructor Unit ml3 Mily Ospina Brian, MD MD br1 Crissy Bates RN RN [facility] Stacey Claros RN RN sls2 Ariana Walker MD MD Christina Ohara RN RN cf2 Gale Salas LPN cp1 The chart was reviewed and I authenticate all verbal orders and agree with the evaluation and treatment provided.Corrections: (The following items were deleted from the chart) : 00:59 CARDIAC MARKER PANEL ordered. EDMS EDMS 01:10 01:07 BLOOD CULTURES ordered. EDMS EDMS 05:39 02:09 TROPONIN ordered. EDMS EDMS 07:49 00:59 ECG WITH READING ER PHYS ordered. EDMS EDMS 11:40 03/05 23:29 ECG WITH READING ER PHYS ordered. EDMS EDMS Attachments: 22:47 [facility] Payment Agreement zo 03/06 14:00 ECG/EKG gb 14:01 T-Sheet-- Draft Copy gb Chart Complete MTDD
--- NOTE | 2016-03-08 13:28 | EDDOCDS ---
Physician Documentation [facility] Name: April Rodriguez Age: 75 yrs Sex: Female : 1940 Arrival Date: 03/05/2016 Time: 21:38 Bed Admit Hold Private MD: Mell Mendoza E Disposition: 03/06/16 00:52 Hospitalization ordered by Flores Jolly for Inpatient Admission. Preliminary diagnosis are Chest pain, unspecified, Pneumonia, unspecified organism. - Bed requested for 4 [place]. - Status is Inpatient Admission. dwg - Condition is Stable. - Problem is new. - Symptoms have improved. Historical: - Allergies: ampicillin sodium; PENICILLINS; - Home Meds: 1. Levothyroxine Unknown Oral 1 cap once daily (Last dose: 03/05/2016) 2. simvastatin 10 mg Oral tab 1 tab once daily (Last dose: 03/04/2016) 3. Tylenol 325 mg Oral tab 2 tabs every 4 hours (Last dose: 03/05/2016 16:00) - PMHx: flat polyps; Hypercholesterolemia; hypo thyroid; - PSHx: lung surgery; breast surgery; Colon Resection; - Social history: Smoking status: Patient states former smoker of tobacco. No barriers to communication noted. - Family history: Not pertinent. - : The pt / caregiver states he / she is not on anticoagulants. Home medication list is obtained from the patient. - Exposure Risk Screening:: None identified. Vital Signs: 03/05 21:40 BP 149 / 82 RA Sitting (auto/reg); Pulse 70; Resp 20; Temp 97.3(O); Pulse Ox 95% on rs6 R/A; Weight 74.39 kg / 164 lbs (R); Height 5 ft. 4 in. (162.56 cm) (R); Pain 5/10; 22:13 BP 135 / 69 (auto/); cf2 22:14 Pulse 86 MON; Pulse Ox 96% ; cf2 22:43 Pulse 84 MON; Pulse Ox 97% ; cf2 22:43 BP 137 / 71 (auto/); cf2 23:13 BP 147 / 92 (auto/); cf2 23:14 Pulse 80 MON; Pulse Ox 97% ; cf2 23:43 Pulse 80 MON; Pulse Ox 97% ; cf2 23:43 BP 149 / 84 (auto/); cf2 23:51 BP 152 / 70 (auto/); dsf 23:53 Pulse 62 MON; Resp 20; Temp 96.8(O); Pulse Ox 95% on R/A; dsf 03/06 00:11 Pulse 76 MON; Pulse Ox 96% ; cf2 01:29 Pulse 74 MON; Pulse Ox 92% ; cf2 01:29 BP 132 / 78; Pulse 88; Resp 16; Temp 98.0; Pulse Ox 95% on R/A; Pain 0/10; cf2 01:37 Pulse 70 MON; Pulse Ox 91% ; cf2 01:45 Pulse 74 MON; Pulse Ox 92% ; cf2 01:50 Pulse 86 MON; Pulse Ox 94% ; cf2 01:56 Pulse 68 MON; Pulse Ox 94% ; cf2 02:31 BP 159 / 75 (auto/); cf2 03/05 21:40 Body Mass Index 28.15 (74.39 kg, 162.56 cm) rs6 MDM: 03/05 21:51 Tmd Teacher/Pulse Ox/q 30 min VS ordered. br1 21:51 IV Saline Lock ordered. br1 21:51 Rhythm Strip to chart ordered. br1 21:51 Undress patient appropriately for examination ordered. br1 21:52 B-Type Natiuretic Peptide Ordered. EDMS 21:52 Basic Metabolic Profile Ordered. EDMS 21:52 CBC with Diff Ordered. EDMS 21:52 Cardiac Injury Profile Ordered. EDMS 21:52 Troponin Ordered. EDMS 21:53 Chest, 2 View (pa\E\lat) Ordered. EDMS 21:53 ECG WITH READING ER PHYS+CARDIAG ordered. EDMS 22:05 Aspirin 324 mg PO once ordered. br1 22:33 CBC with Diff Reviewed. br1 22:39 Financial registration complete. zo 22:47 [facility] Payment Agreement was scanned into [employer] and attached to record. zo 22:49 B-Type Natiuretic Peptide Reviewed. br1 22:58 Basic Metabolic Profile Reviewed. br1 22:58 Cardiac Injury Profile Reviewed. br1 22:58 Troponin Reviewed. br1 23:00 CT Chest Angio R/O PE Ordered. EDMS 23:09 morphine 2 mg IVP once; prn pain ordered. br1 23:19 Repeat EKG (put time details section) ordered. br1 23:19 Redraw CIP &Troponin (put time in details section) ordered. br1 23:29 Redraw CIP &Troponin (put time in details section) complete. ml3 23:29 Repeat EKG (put time details section) complete. ml3 23:30 CARDIAC MARKER PANEL Ordered. EDMS 23:48 Recheck Vital Signs, perform reassessment and enter into [employer] ordered. br1 23:57 -Blood Culture (Adults Only), peripheral from different site, or from device/port/PICC br1 etc. if present ordered. 23:57 -Blood Culture Ordered. EDMS 23:58 -Blood Culture (Adults Only), peripheral from different site, or from device/port/PICC ml3 etc. if present complete. 03/06 00:00 BLOOD CULTURES Ordered. EDMS 00:50 levofloxacin 500 mg IVPB once over 60 mins ordered. fg 00:50 BED REQUEST+ADM ordered. EDMS 00:53 Repeat EKG (put time details section) ordered. fg 00:53 Redraw CIP &Troponin (put time in details section) ordered. fg 00:58 Repeat EKG (put time details section) complete. ml3 00:58 Redraw CIP &Troponin (put time in details section) complete. ml3 01:08 Admission / Observation Status ordered. EDMS 01:09 REGULAR DIET ordered. EDMS 02:29 SPUTUM CULTURE AND GRAM STAIN Ordered. EDMS 05:37 TROPONIN Ordered. EDMS 05:37 COMPLETE BLOOD COUNT Ordered. EDMS 05:38 BASIC METABOLIC PROFILE Ordered. EDMS 06:32 URINALYSIS Ordered. EDMS 06:32 URINE CULTURE Ordered. EDMS 14:00 ECG/EKG was scanned into [employer] and attached to record. gb 14:01 T-Sheet-- Draft Copy was scanned into [employer] and attached to record. gb Administered Medications: 03/05 22:11 Drug: Aspirin 324 mg [aspirin 81 mg chewable tablet (4 tabs)] Route: PO; cp1 23:23 Follow up: Response: No significant change. cf2 23:10 Drug: morphine 2 mg [morphine 2 mg/mL intravenous cartridge (1 mL)] Route: IVP; Site: cf2 left antecubital; 23:23 Follow up: Response: No significant change. cf2 03/06 01:00 Drug: levofloxacin 500 mg [levofloxacin 500 mg/100 mL in 5 % dextrose intravenous cf2 piggyback] Route: IVPB; Infused Over: 60 mins; Site: left antecubital; 02:09 Follow up: Response: No Adverse Reaction cf2 Signatures: Dispatcher [employer] Juanito Winter, RN RN dwg Padmaja Plascencia, Reg Reg gb Laura, Anaya, Industrial Engineering Director Unit ml3 Mily Ospina Brian, MD MD br1 Crissy Bates RN RN [facility] Stacey Claros RN RN sls2 Ariana Walker MD MD Christina Ohara RN RN cf2 Gale Salas LPN cp1 The chart was reviewed and I authenticate all verbal orders and agree with the evaluation and treatment provided.Corrections: (The following items were deleted from the chart) : 00:59 CARDIAC MARKER PANEL ordered. EDMS EDMS 01:10 01:07 BLOOD CULTURES ordered. EDMS EDMS 05:39 02:09 TROPONIN ordered. EDMS EDMS 07:49 00:59 ECG WITH READING ER PHYS ordered. EDMS EDMS 11:40 03/05 23:29 ECG WITH READING ER PHYS ordered. EDMS EDMS Attachments: 22:47 [facility] Payment Agreement zo 03/06 14:00 ECG/EKG gb 14:01 T-Sheet-- Draft Copy gb Chart Complete MTDD
--- NOTE | 2016-03-08 13:28 | EDDOCDS ---
Nurse's Notes [facility] Name: April Rodriguez Age: 75 yrs Sex: Female : 1940 Arrival Date: 03/05/2016 Time: 21:38 Bed Admit Hold Private MD: Mell Mendoza E Diagnosis: Chest pain, unspecified;Pneumonia, unspecified organism Presentation: 03/05 21:45 Presenting complaint: Patient states: trouble breathing started this morning when I [facility] woke up, I've been taking a couple of pain pills and it was better for a while but getting worse tonight, feel short of breath and getting worse with back pain when breathing. Had a filling on lower left yesterday and has sustained pain and visible bruising. Adult Sepsis Screening: The patient does not have new or worsening altered mentation. Patient's respiratory rate is less than 22. Systolic blood pressure is greater than 100. Patient has a qSOFA score of 0- Negative Sepsis Screen. Suicide/Homicide risk assessment- the patient denies having any suicidal and/or homicidal ideations and does not present with any other emotional, behavioral or mental health complaints. Status: Patient is not a central service supply distributor or dependent. Transition of care: patient was not received from another setting of care. 21:45 Acuity: HIRAM Level 3 [facility] 21:45 Method Of Arrival: Walkin/Carried/Asstd [facility] Triage Assessment: 21:52 General: Appears in no apparent distress, comfortable, Behavior is appropriate for age, [facility] cooperative. Pain: Location: back Pain currently is 5 out of 10 on a pain scale. Respiratory: Onset: The symptoms/episode began/occurred this morning, Airway is patent Respiratory effort is even, unlabored, Respiratory pattern is regular, symmetrical. Historical: - Allergies: ampicillin sodium; PENICILLINS; - Home Meds: 1. Levothyroxine Unknown Oral 1 cap once daily (Last dose: 03/05/2016) 2. simvastatin 10 mg Oral tab 1 tab once daily (Last dose: 03/04/2016) 3. Tylenol 325 mg Oral tab 2 tabs every 4 hours (Last dose: 03/05/2016 16:00) - PMHx: flat polyps; Hypercholesterolemia; hypo thyroid; - PSHx: lung surgery; breast surgery; Colon Resection; - Social history: Smoking status: Patient states former smoker of tobacco. No barriers to communication noted. - Family history: Not pertinent. - : The pt / caregiver states he / she is not on anticoagulants. Home medication list is obtained from the patient. - Exposure Risk Screening:: None identified. Screenin:31 Screening information is obtained from the patient, family members. Fall risk: At risk cf2 due to age. Assistance ADL's: requires no assistance with activities of daily living. Abuse/DV Screen: The patient / caregiver reports he/she is: not in a situation that causes fear, pain or injury. Nutritional screening: No deficits noted. Advance Directives: Further advance directive information is declined. home support is adequate. Assessment: 22:28 General: Appears comfortable, Behavior is appropriate for age, cooperative, Denies cf2 feeling ill, fatigue, chills, Patient received alert and oriented, with complaint of shortness of breath that gets worse with laying down and a headache "where I see these bright flashes of light". MD made aware.. Pain: Location: headache. Neurological: No deficits noted. EENT: No deficits noted. Cardiovascular: No deficits noted. Capillary refill < 3 seconds Clubbing of nail beds is absent JVD is absent Edema is absent. Pulses are all present. Rhythm is sinus rhythm Chest pain is denied. Respiratory: No deficits noted. Airway is patent Respiratory effort is even, unlabored, Breath sounds are clear Reports shortness of breath while lying flat. GI: No deficits noted. : No deficits noted. Derm: Bruising that is dark purple, on lower jaw. Musculoskeletal: No deficits noted. Injury Description: No known injury. 23:56 General: pt came out to nurses station stating pt's stomach was bothering her. dsf pt would not tell this medical writer if she was in pain or had nausea. Pt states she felt hot. Dr. alvarado notified and went to evaluate pt . 03/06 04:57 Reassessment: Patient appears in no apparent distress at this time. Patient denies pain cf2 at this time. Patient states feeling better. Patient states symptoms have improved. Adult Sepsis Screening: The patient does not have new or worsening altered mentation. Patient's respiratory rate is less than 22. Systolic blood pressure is greater than 100. Patient has a qSOFA score of 0- Negative Sepsis Screen. Vital Signs: 03/05 21:40 BP 149 / 82 RA Sitting (auto/reg); Pulse 70; Resp 20; Temp 97.3(O); Pulse Ox 95% on rs6 R/A; Weight 74.39 kg (R); Height 5 ft. 4 in. (162.56 cm) (R); Pain 5/10; 22:13 BP 135 / 69 (auto/); cf2 22:14 Pulse 86 MON; Pulse Ox 96% ; cf2 22:43 Pulse 84 MON; Pulse Ox 97% ; cf2 22:43 BP 137 / 71 (auto/); cf2 23:13 BP 147 / 92 (auto/); cf2 23:14 Pulse 80 MON; Pulse Ox 97% ; cf2 23:43 Pulse 80 MON; Pulse Ox 97% ; cf2 23:43 BP 149 / 84 (auto/); cf2 23:51 BP 152 / 70 (auto/); dsf 23:53 Pulse 62 MON; Resp 20; Temp 96.8(O); Pulse Ox 95% on R/A; dsf 03/06 00:11 Pulse 76 MON; Pulse Ox 96% ; cf2 01:29 Pulse 74 MON; Pulse Ox 92% ; cf2 01:29 BP 132 / 78; Pulse 88; Resp 16; Temp 98.0; Pulse Ox 95% on R/A; Pain 0/10; cf2 01:37 Pulse 70 MON; Pulse Ox 91% ; cf2 01:45 Pulse 74 MON; Pulse Ox 92% ; cf2 01:50 Pulse 86 MON; Pulse Ox 94% ; cf2 01:56 Pulse 68 MON; Pulse Ox 94% ; cf2 02:31 BP 159 / 75 (auto/); cf2 03/05 21:40 Body Mass Index 28.15 (74.39 kg, 162.56 cm) rs6 Vitals: 03/05 21:40 Log In Time: March 05, 2016 at 21:33. rs6 21:41 RN notified that patient meets Red Flag criteria. rs6 ED Course: 21:39 Patient visited by Bridgette Scott PCA. rs6 21:39 Patient moved to Waiting rs6 21:40 Mell Mendoza is Private Physician. rs6 21:42 Patient visited by Bridgette Scott PCA. rs6 21:44 Patient moved to 12 21:45 Roney Alvarado MD is Attending Physician. br1 21:46 Triage Initiated cjh 22:00 Christina Ohara,GRAYSON is Primary Nurse. cf2 22:00 Patient visited by Christina Ohara RN. cf2 22:03 Patient visited by Christina Ohara RN. cf2 22:03 Patient visited by Shilpa Oneill PCA. kaur 22:03 Pt greeted and oriented to ED. Patient advised of names of staff involved in care, kaur location of call tena, wait times and NPO status. Accompanied by Significant Other, Patient has correct armband on for positive identification. Placed in gown. Bed in low position. Call light in reach. Side rails up X2. athletic monitor on. Pulse ox on. NIBP on. 22:03 EKG done. (by ED staff). Reviewed by Roney Alvarado MD. kaur 22:05 Patient visited by Roney Alvarado MD. br1 22:17 Primary Nurse role handed off by Christina Ohara RN dsf 22:17 Ruby FungRN is Primary Nurse. dsf 22:17 Christina Ohara RN is Primary Nurse. cf2 22:17 Patient visited by Christina Ohara RN. cf2 22:17 Troponin Sent. cf2 22:17 Cardiac Injury Profile Sent. cf2 22:17 CBC with Diff Sent. cf2 22:17 Basic Metabolic Profile Sent. cf2 22:17 B-Type Natiuretic Peptide Sent. cf2 22:31 The patient / caregiver is instructed regarding the plan of care and ED course. cf2 Property :Personal belongings accompany Pt. Door closed. Noise minimized. Visitors limited. Lights dimmed. Moved to private room. Verbal reassurance given. Warm blanket given. Pillow given. Head of bed elevated. 22:31 Inserted saline lock: 20 gauge in right antecubital area and blood collected. The cf2 patient tolerated the procedure well. No procedures done that require assistance. 22:47 [facility] Payment Agreement was scanned into [employer] and attached to record. zo 22:50 Patient visited by Christina Ohara RN. cf2 22:56 Patient visited by Christina Ohara RN. cf2 23:[address] dsf 23:37 Patient moved to 12 jpk 23:38 Patient visited by Christina Ohara,GRAYSON. cf2 23:54 Patient visited by Roney Alvarado MD. br1 23:57 Patient visited by Ruby Fung RN. dsf 03/06 00:40 CT Chest Angio R/O PE Returned. EDMS 00:47 Patient visited by Christina Ohara,GRAYSON. cf2 00:51 Flores Jolly is Hospitalizing Provider. fg 01:01 Patient moved to Admit Hold cz 01:05 Patient visited by Christina Ohara RN. cf2 01:23 BLOOD CULTURES Sent. cf2 02:00 Patient visited by Christina Ohara RN. cf2 02:09 Patient visited by Christina Ohara RN. cf2 02:44 Patient visited by Christina Ohara RN. cf2 04:57 Patient visited by Christina Ohara RN. cf2 08:33 Chest, 2 View (pa\\E\\lat) Returned. EDMS 14:00 ECG/EKG was scanned into [employer] and attached to record. gb 14:01 T-Sheet-- Draft Copy was scanned into [employer] and attached to record. gb Administered Medications: 03/05 22:11 Drug: Aspirin 324 mg [aspirin 81 mg chewable tablet (4 tabs)] Route: PO; cp1 23:23 Follow up: Response: No significant change. cf2 23:10 Drug: morphine 2 mg [morphine 2 mg/mL intravenous cartridge (1 mL)] Route: IVP; Site: cf2 left antecubital; 23:23 Follow up: Response: No significant change. cf2 03/06 01:00 Drug: levofloxacin 500 mg [levofloxacin 500 mg/100 mL in 5 % dextrose intravenous cf2 piggyback] Route: IVPB; Infused Over: 60 mins; Site: left antecubital; 02:09 Follow up: Response: No Adverse Reaction cf2 Order Results: Lab Order: B-Type Natiuretic Peptide; SPEC'M 03/05/16 22:15 Test: BRAIN NATRIURETIC PEPTIDE; Value: 47.7; Range: <100; Units: PG/ML; Status: F Lab Order: Basic Metabolic Profile; SPEC'M 03/05/16 22:14 Test: GLUCOSE, FASTING; Value: 115; Range: 83-110; Abnormal: Above high normal; Units: MG/DL; Status: F Test: BLOOD UREA NITROGEN; Value: 20; Range: 7-18; Abnormal: Above high normal; Units: MG/DL; Status: F Test: CREATININE FOR GFR; Value: 1.04; Range: 0.55-1.02; Abnormal: Above high normal; Units: MG/DL; Status: F Test: GLOMERULAR FILTRATION RATE; Value: 54.7; Range: >39; Status: F Test: SODIUM LEVEL; Value: 139; Range: 136-145; Units: MEQ/L; Status: F Test: POTASSIUM SERUM; Value: 3.8; Range: 3.5-5.1; Units: MEQ/L; Status: F Test: CHLORIDE LEVEL; Value: 102; Range: 98-107; Units: MEQ/L; Status: F Test: CARBON DIOXIDE LEVEL; Value: 28; Range: 21-32; Units: MEQ/L; Status: F Test: ANION GAP; Value: 9; Range: 8-16; Units: MEQ/L; Status: F Test: CALCIUM LEVEL; Value: 9.1; Range: 8.8-10.2; Units: MG/DL; Status: F Test Note: ; Units are mL/min/1.73 m2 Chronic Kidney Disease Staging per NKF: Stage I & II GFR >=60 Normal to Mildly Decreased Stage III GFR 30-59 Moderately Decreased Stage IV GFR 15-29 Severely Decreased Stage V GFR <15 Very Little GFR Left ESRD GFR <15 on SEXUAL ASSAULT RESPONSE COORDINATOR Lab Order: CBC with Diff; SPEC'M 03/05/16 22:15 Test: WHITE BLOOD COUNT; Value: 10.5; Range: 4.0-10.0; Abnormal: Above high normal; Units: K/mm3; Status: F Test: RED BLOOD COUNT; Value: 4.52; Range: 4.00-5.40; Units: M/mm3; Status: F Test: HEMOGLOBIN; Value: 13.6; Range: 12.0-16.0; Units: g/dl; Status: F Test: HEMATOCRIT; Value: 41.1; Range: 36.0-47.0; Units: %; Status: F Test: MEAN CORPUSCULAR VOLUME; Value: 90.8; Range: 80.0-96.0; Units: fl; Status: F Test: MEAN CORPUSCULAR HEMOGLOBIN; Value: 30.1; Range: 27.0-33.0; Units: pg; Status: F Test: MEAN CORPUSCULAR HGB CONC; Value: 33.1; Range: 32.0-36.5; Units: g/dl; Status: F Test: RED CELL DISTRIBUTION WIDTH; Value: 12.6; Range: 11.5-14.5; Units: %; Status: F Test: PLATELET COUNT, AUTOMATED; Value: 273; Range: 150-450; Units: k/mm3; Status: F Test: NEUTROPHILS %; Value: 76.5; Range: 36.0-66.0; Abnormal: Above high normal; Units: %; Status: F Test: LYMPH %; Value: 16.4; Range: 24.0-44.0; Abnormal: Below low normal; Units: %; Status: F Test: MONO %; Value: 4.3; Range: 0.0-5.0; Units: %; Status: F Test: EOS %; Value: 0.8; Range: 0.0-3.0; Units: %; Status: F Test: BASO %; Value: 0.5; Range: 0.0-1.0; Units: %; Status: F Test: LARGE UNSTAINED CELL %; Value: 1.6; Range: 0.0-4.0; Units: %; Status: F Test: NEUTROPHILS #; Value: 8.0; Range: 1.8-7.7; Abnormal: Above high normal; Units: K/mm3; Status: F Test: LYMPH #; Value: 1.7; Range: 1.5-4.5; Units: K/mm3; Status: F Test: MONO #; Value: 0.5; Range: 0.0-0.8; Units: K/mm3; Status: F Test: EOS #; Value: 0.1; Range: 0.0-0.50; Units: K/mm3; Status: F Test: BASO #; Value: 0.0; Range: 0.0-0.2; Units: K/mm3; Status: F Test: LARGE UNSTAINED CELL #; Value: 0.2; Range: 0.0-0.4; Units: K/mm3; Status: F Lab Order: Cardiac Injury Profile; [facility] 03/05/16 22:14 Test: CPK CREATINE PHOSPHOKINASE; Value: 75; Range: 26-192; Units: U/L; Status: F Test: CK-MB VALUE MASS; Value: 1.0; Range: 0.0-3.6; Units: NG/ML; Status: F Test: MB/CK RELATIVE INDEX; Value: 1.33; Range: < OR =4; Status: F Test Note: ; DIAGNOSIS CRITERIA MMB ng/ml Relative Index (RI) NON-AMI < or = 5 N/A SCHWARTZ ZONE > 5 < or = 4 AMI > 5 > 4 Lab Order: Troponin; [facility] 03/05/16 22:14 Test: TROPONIN I; Value: < 0.02; Range: < 0.10; Units: NG/ML; Status: F Test Note: ; Troponin I Reference Interval for [employer] LOCI: 99th Percentile= 0.00-0.045 ng/ml Risk Stratification: <= 0.10 ng/ml Decreased Risk for Adverse Clinical Events. 0.10-1.50 ng/ml Increased Risk for Adverse Clinical Events. Evaluation of additional criterion and/or repeat testing in 2-6 hours is suggested to rule out myocardial damage. >= 1.50 ng/ml Indicative of Myocardial Injury. Lab Order: CARDIAC MARKER PANEL; [facility] 03/06/16 03:08 Test: CPK CREATINE PHOSPHOKINASE; Value: 80; Range: 26-192; Units: U/L; Status: F Test: CK-MB VALUE MASS; Value: 1.0; Range: 0.0-3.6; Units: NG/ML; Status: F Test: MB/CK RELATIVE INDEX; Value: 1.25; Range: < OR =4; Status: F Test: TROPONIN I; Value: < 0.02; Range: < 0.10; Units: NG/ML; Status: F Test Note: ; DIAGNOSIS CRITERIA MMB ng/ml Relative Index (RI) NON-AMI < or = 5 N/A SCHWARTZ ZONE > 5 < or = 4 AMI > 5 > 4 Lab Order: TROPONIN; [facility] 03/06/16 10:15 Test: TROPONIN I; Value: < 0.02; Range: < 0.10; Units: NG/ML; Status: F Test Note: ; Troponin I Reference Interval for [employer] LOCI: 99th Percentile= 0.00-0.045 ng/ml Risk Stratification: <= 0.10 ng/ml Decreased Risk for Adverse Clinical Events. 0.10-1.50 ng/ml Increased Risk for Adverse Clinical Events. Evaluation of additional criterion and/or repeat testing in 2-6 hours is suggested to rule out myocardial damage. >= 1.50 ng/ml Indicative of Myocardial Injury. Lab Order: COMPLETE BLOOD COUNT; SPEC'M 03/06/16 07:04 Test: WHITE BLOOD COUNT; Value: 8.4; Range: 4.0-10.0; Units: K/mm3; Status: F Test: RED BLOOD COUNT; Value: 4.18; Range: 4.00-5.40; Units: M/mm3; Status: F Test: HEMOGLOBIN; Value: 12.8; Range: 12.0-16.0; Units: g/dl; Status: F Test: HEMATOCRIT; Value: 37.9; Range: 36.0-47.0; Units: %; Status: F Test: MEAN CORPUSCULAR VOLUME; Value: 90.7; Range: 80.0-96.0; Units: fl; Status: F Test: MEAN CORPUSCULAR HEMOGLOBIN; Value: 30.5; Range: 27.0-33.0; Units: pg; Status: F Test: MEAN CORPUSCULAR HGB CONC; Value: 33.7; Range: 32.0-36.5; Units: g/dl; Status: F Test: RED CELL DISTRIBUTION WIDTH; Value: 12.6; Range: 11.5-14.5; Units: %; Status: F Test: PLATELET COUNT, AUTOMATED; Value: 208; Range: 150-450; Units: k/mm3; Status: F Lab Order: BASIC METABOLIC PROFILE; SPEC'03/06/16 07:04 Test: GLUCOSE, FASTING; Value: 106; Range: 83-110; Units: MG/DL; Status: F Test: BLOOD UREA NITROGEN; Value: 16; Range: 7-18; Units: MG/DL; Status: F Test: CREATININE FOR GFR; Value: 0.92; Range: 0.55-1.02; Units: MG/DL; Status: F Test: GLOMERULAR FILTRATION RATE; Value: > 60.0; Range: >39; Status: F Test: SODIUM LEVEL; Value: 138; Range: 136-145; Units: MEQ/L; Status: F Test: POTASSIUM SERUM; Value: 4.0; Range: 3.5-5.1; Units: MEQ/L; Status: F Test: CHLORIDE LEVEL; Value: 105; Range: 98-107; Units: MEQ/L; Status: F Test: CARBON DIOXIDE LEVEL; Value: 26; Range: 21-32; Units: MEQ/L; Status: F Test: ANION GAP; Value: 7; Range: 8-16; Abnormal: Below low normal; Units: MEQ/L; Status: F Test: CALCIUM LEVEL; Value: 8.8; Range: 8.8-10.2; Units: MG/DL; Status: F Test Note: ; Units are mL/min/1.73 m2 Chronic Kidney Disease Staging per NKF: Stage I & II GFR >=60 Normal to Mildly Decreased Stage III GFR 30-59 Moderately Decreased Stage IV GFR 15-29 Severely Decreased Stage V GFR <15 Very Little GFR Left ESRD GFR <15 on SEXUAL ASSAULT RESPONSE COORDINATOR Radiology Order: Chest, 2 View (pa\\E\\lat) Test: Chest, 2 View (pa\\E\\lat) REASON FOR EXAMINATION: Shortness of Breath; Clinical: Shortness of breath.; ; Technique: PA and lateral.; ; Comparison: 05/09/2014.; ; Findings:; Chronic elevation of the right hemidiaphragm and right basilar fibrotic changes; are appreciated. Subtle superimposed right basilar atelectasis cannot be; excluded. Remainder of lung bush are well-aerated and essentially clear.; Mediastinum and cardiac silhouette are within normal limits and stable. Skeletal; structures are intact.; ; Impression:; Chronic changes to the right hemithorax.; Cannot exclude superimposed acute atelectasis.; ; ; Signed by; Reid Ma MD 03/06/2016 08:09 A; Radiology Order: CT Chest Angio R/O PE Test: CT Chest Angio R/O PE REASON FOR EXAMINATION: Shortness of Breath; ; CLINICAL INDICATION: Shortness of breath. Evaluate for pulmonary embolism.; COMPARISON: None; TECHNIQUE: CT pulmonary angiogram was performed with intravenous contrast. 3D/MIPS technique was util; ized with multiplanar reconstructions in sagittal and coronal projections.; FINDINGS:; LINES AND DEVICES: None; PULMONARY ARTERY: The pulmonary artery is normal in caliber. There is no evidence of filling defects; in the main, right or left main, lobar, segmental, and visualized subsegmental pulmonary arteries.; AORTA: Normal in caliber with no evidence of gross dissection or aneurysm.; LOWER NECK/THYROID: Thyroid gland is unremarkable. No mass, suspicious cystic lesion, or enlarged gabi; nopathy.; AXILLA/HILUM/MEDIASTINUM : No enlarged adenopathy, mass, suspicious cystic lesion, or fluid collectio; n.; HEART: Heart is normal in size without pericardial effusion.; AIRWAYS, LUNGS AND PLEURA: Bilateral centrilobular emphysematous changes, dependent changes toward th; e lower lobes with mild atelectasis, and a left posterior lung base infiltrate-like opacity noted on; axial series 402, image 603. No mass, suspicious nodule, or pneumothorax. Central and visualized tesha; pheral airways are patent.; UPPER ABDOMEN: Visualized upper abdominal organs are unremarkable.; OSSEOUS STRUCTURES: No fracture or suspicious lesion; SOFT TISSUES AND THORACIC WALL : No soft tissue abnormality or hernia.; OTHER: No other significant abnormalities.; IMPRESSION:; No pulmonary embolism. Centrilobular emphysematous changes noted with a left lower lobe opacity towar; d the bases which may represent infiltrate in proper clinical context.; ; Outcome: 03/05 22:14 CT Study completed. cf2 03/06 00:52 Decision to Hospitalize by Provider. fg 01:29 Discharge Assessment: Patient awake, alert and oriented x 3. No cognitive and/or cf2 functional deficits noted. Patient verbalized understanding of disposition instructions. Patient awake and alert. Oriented to person, place and time. Patient verbalized understanding of disposition instructions. Patient has no functional deficits. patient administered narcotics - yes. Patient was admitted to the hospital or transferred to another facility. The following High Risk Discharge criteria are identified: None. Admitted ER admission nurse. Condition: stable. 12:27 Patient left the ED. nichole Signatures: Dispatcher [employer] EDJuanito Gold RN RN dwg Hai Tucker, RN RN Eze Jean jpk Temo, Padmaja, Reg Reg gb Mily Ospina Brian, MD MD br1 Gale Salas,NEIGHBORHOOD CONSERVATION OFFICER NEIGHBORHOOD CONSERVATION OFFICER cp1 Mai, Shilpa, ADMINISTRATIVE SUPPORT SPECIALIST ADMINISTRATIVE SUPPORT SPECIALIST kaur Kenton,Ruby,RN RN dsf Crissy Bates,RN RN [facility] Tyler, Bridgette, ADMINISTRATIVE SUPPORT SPECIALIST ADMINISTRATIVE SUPPORT SPECIALIST rs6 Ariana Walker MD MD Christina Ohara,RN RN cf2 Chart Complete MTDD
--- NOTE | 2016-03-08 19:26 | DS.PDOC ---
Discharge Summary General Date of Admission Mar 06, 2016 at 01:03 Date of Discharge Mar 08, 2016 at 13:24 Primary Care Physician: ALEX OTERO DO Discharge Summary PROCEDURES PERFORMED DURING STAY: None COMPLICATIONS/CHIEF COMPLAINT: Pneumonia ADMISSION DIAGNOSES: 1. Respiratory distress 2. Pneumonia 3. 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 Hyperthyroidism s/p partial thyroidectomy 5. Tubular vilous adenoma s/p resection DISCHARGE DIAGNOSES: 1. Respiratory failure 2. Pneumonia 3. 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 Hyperthyroidism s/p partial thyroidectomy 5. Tubular vilous adenoma s/p resection HOSPITAL COURSE: 75 year old female admitted for shortness of breath secondary to pneumonia. CT angio revealed left lower lobe opacity/infiltrate. Patient evaluated in ER, PE ruled by CT angiogram, [place] ruled with negative cardiac enzymes x 2 and ECG. Patient was admitted for IV antibiotics and supplemental oxygen. Patient responding to treatment. Unexpectedly on hospital day 3, patient used her call button requesting assistance, and upon nursing staff entry to her room, patient was found unresponsive. Code blue was called and patient underwent extensive emergency resuscitation including full ACLS protocol and tPA for possible massive PE. Patient did not respond to treatment and sadly . Extensive discussions held with family including siblings and . Shortly after first discussion, was informed patients family were requesting an autopsy. Contacted 3 medical examiners (Dr. Roque, Sushila, Declan) who indicated they were not recommending autopsy. Also contacted pathologist on- call Dr. Owens who agreed for autopsy but only as per family request. Family ultimately decided they did not wish to proceed with an autopsy. Specifically decision was made by her Memo Rodriguez, and family was in agreement. DISCHARGE MEDICATIONS: Please see below. ALLERGIES: Please see below. PHYSICAL EXAMINATION ON DISCHARGE: Patient . LABORATORY DATA: Please see below. DISCHARGE CONDITION: Patient DISPOSITION: 20 TIME SPENT ON DISCHARGE: Greater than 30 minutes. Vital Signs/I&Os Vital Signs Date Time Temp Pulse Resp B/P Pulse Ox O2 Delivery O2 Flow Rate FiO2 03/08/16 06:00 97.3 85 18 113/57 93 Nasal Cannula 2.0 I&O- Last 24 Hours up to 6 AM 03/08/16 06:00 Intake Total 1300 ml Output Total 800 ml Balance 500 ml Laboratory Data Labs 24H Laboratory Tests 2 03/08/16 04:53: Anion Gap 7L, White Blood Count 9.0, Red Blood Count 3.86L, Hemoglobin 11.7L, Hematocrit 35.3L, Mean Corpuscular Volume 91.5, Mean Corpuscular Hemoglobin 30.3 , Mean Corpuscular Hemoglobin Concent 33.1, Red Cell Distribution Width 12.7, Platelet Count 204, Neutrophils (%) (Auto) 78.3H, Lymphocytes (%) (Auto) 13.1L, Monocytes (%) (Auto) 4.9, Eosinophils (%) (Auto) 0.9, Basophils (%) (Auto) 0.3, Neutrophils # (Auto) 7.1, Lymphocytes # (Auto) 1.2L, Monocytes # (Auto) 0.4, Eosinophils # (Auto) 0.1, Basophils # (Auto) 0.0, Blood Urea Nitrogen 17, Creatinine 0.89, Sodium Level 144, Potassium Level 4.0, Chloride Level 111H, Carbon Dioxide Level 26, Calcium Level 8.2L, Glomerular Filtration Rate > 60.0, Large Unclassified Cells # 0.2, Large Unclassified Cells % 2.5 CBC/BMP Laboratory Tests 03/08/16 04:53 Calcium Level 8.2 L, Red Blood Count 3.86 L, Mean Corpuscular Volume 91.5, Mean Corpuscular Hemoglobin 30.3, Mean Corpuscular Hemoglobin Concent 33.1, Red Cell Distribution Width 12.7, Neutrophils (%) (Auto) 78.3 H, Lymphocytes (%) (Auto) 13.1 L, Monocytes (%) (Auto) 4.9, Eosinophils (%) (Auto) 0.9, Basophils (%) ( Auto) 0.3, Neutrophils # (Auto) 7.1, Lymphocytes # (Auto) 1.2 L, Monocytes # ( Auto) 0.4, Eosinophils # (Auto) 0.1, Basophils # (Auto) 0.0 Microbiology Microbiology 03/06/16 Blood Culture - Preliminary, Resulted No Growth after 48 hours. All Specime... 03/06/16 Blood Culture - Preliminary, Resulted No Growth after 48 hours. All Specime... 03/07/16 Urine Culture - Final, Complete Medications Scheduled (Viactiv 500-500-40 mg-Unt-Mcg) 1 Chw Chw 1 CHW PO BID Aspirin (Aspirin) 81 Mg Tab 81 MG PO QHS Levothyroxine Sodium (Synthroid) 88 Mcg Tab 88 MCG PO DAILY Lysine HCl (Lysine) 1,000 Mg Tab 1,000 MG PO DAILY Multivitamins *[facility] STOCKED* (Thera M Plus *[facility] STOCKED*) 1 Tab Tab 1 TAB PO DAILY Simvastatin (Simvastatin) 10 Mg Tab 10 MG PO QHS Scheduled PRN Acetaminophen (Acetaminophen) 500 Mg Tab 1,000 MG PO Q6H PRN PRN PAIN Allergies Coded Allergies: Erythromycin (Verified Allergy, Unknown, 05/24/12) Penicillins (Verified Allergy, Unknown, PCN AND AMPICILLIN, 05/24/12) Penicillins Cross Reactors (Verified Allergy, Unknown, PCN AND AMPICILLIN , 05/24/12) LISBETH REYNOLDS MD Mar 08, 2016 19:26
[2016-03-10 14:11] LABS: ORGANISM ID Not indicated. (.); SPECIMEN SOURCE Urine (.)
== END 2016-03-08 13:24 | disposition expired | DRG 193 ==
LOC: M ED 21:38 → M ED INP 03-06 01:03 → M MSPAV 03-06 12:20
PROVIDERS: ADMIT Internal Medicine Nephrology; ATTEND Internal Medicine
DX: J18.9 Pneumonia, unspecified organism (principal); J96.00 Acute respiratory failure, unspecified whether with hypoxia or hypercapnia; E03.9 Hypothyroidism, unspecified; Z79.899 Other long term (current) drug therapy; Z88.0 Allergy status to penicillin; Z88.1 Allergy status to other antibiotic agents; E78.5 Hyperlipidemia, unspecified; R91.8 Other nonspecific abnormal finding of lung field; Z79.82 Long term (current) use of aspirin; Z87.891 Personal history of nicotine dependence; Z85.038 Personal history of other malignant neoplasm of large intestine